=== PATIENT | male | born 1980 | race Two or more races ===

== ENCOUNTER 2020-02-24 12:37 | Outpatient (REF) | payer OTHER, SELFPAY ==
--- NOTE | 2020-02-24 | US_ITS ---
EXAMINATION: US VENOUS DUPLEX, RIGHT LOWER EXTREMITY CLINICAL INFORMATION: Right calf pain. Status post trauma on 02/22/2020 to the right knee and proximal calf area with bruising. COMPARISON: None TECHNIQUE: Walsh-scale, color Doppler and spectral Doppler evaluation of the right lower extremity venous system is acquired utilizing high-resolution linear transducer. FINDINGS: The common femoral vein, femoral vein and popliteal veins are patent and compressible. The deep calf veins demonstrate normal color flow. The visualized segments of the greater saphenous vein and profunda vein demonstrate normal color flow. A mildly complex avascular fluid collection is noted in the popliteal fossa measuring 3.6 x 2.2 x 4.4 cm. Smaller fluid collections are noted in the areas of bruising in the medial popliteal fossa and proximal medial calf in the deep subcutaneous tissue with somewhat complex appearance without internal vascularity. Somewhat more focal area of heterogeneous echogenicity approximately measuring 3.6 cm in maximum dimension is noted in the proximal medial calf without internal vascularity which may represent a soft tissue hematoma. IMPRESSION: 1. No evidence of deep venous thrombosis in the right lower extremity. 2. Multiple mildly complex avascular fluid collections are noted in the areas of bruising in the posterior and proximal medial calf deep subcutaneous tissue. More focal area of from heterogeneous echogenicity in the proximal medial calf may represent a hematoma in the deep subcutaneous tissue. The findings likely represent posttraumatic changes. Recommend close clinical follow-up. Follow-up imaging may be acquired as clinically deemed necessary.
== END 2020-02-24 12:38 | disposition home or self-care (01) ==
LOC: HO.US 12:37
PROVIDERS: PCP Internal Medicine; Visit Provider Internal Medicine
DX: M79.661 Pain in right lower leg (principal); R22.41 Localized swelling, mass and lump, right lower limb; S89.91XA Unspecified injury of right lower leg, initial encounter
CPT/HCPCS: 93971

== ENCOUNTER 2020-04-08 17:31 | Emergency (ER) | payer OTHER, SELFPAY ==
--- NOTE | 2020-04-08 18:07 | ED_ITS ---
HPI - General Adult General Chief complaint: Upper Respiratory Symptoms Stated complaint: covid symptoms Time Seen by Provider: 04/08/20 17:56 Source: patient Mode of arrival: ambulatory Limitations: no limitations History of Present Illness HPI narrative: Patient comes to emergency room complaining of a headache, body aches, states that his [id number] was recently diagnosed with COVID-19 and is in the hospital. Patient would like to be tested. MD complaint: Flu-like symptoms Related Data Allergies Allergy/AdvReac Type Severity Reaction Status Date / Time No Known Allergies Allergy Unverified 01/28/20 17:26 [No Known Allergies*] Review of Systems Review of Systems: Constitutional : Complaining fatigue and general malaise ENT/Mouth : No Hearing loss, No Ear Pain, No Nasal Congestion, No Sinus Pain, No Hoarseness, No sore throat, No Rhinorrhea, No Swallowing Difficulty Eyes: No Eye Pain, No Swelling, No Redness, No Foreign Body, No Discharge, No Vision Changes Cardiovascular : No Chest Pain, No SOB, No Dyspnea on Exertion, No Orthopnea, No Edema, No Palpitations Respiratory : Complaining of mild Cough, No Sputum, No Wheezing, No Smoke Exposure, No Dyspnea Gastrointestinal : No Nausea, No Vomiting, No Diarrhea, No Constipation, No abdominal Pain, No Hematochezia, No Melena Genitourinary : no irregular bleeding, No Dysuria, No Urinary Frequency, No Hematuria, No Urinary Incontinence, No Urgency, No Flank Pain, No Urinary Flow Changes, No Hesitancy Musculoskeletal : No joint pain, No Myalgias, No Joint Swelling Skin : No Skin Lesions, No rash Neuro : No Weakness, No Numbness, No Paresthesias, No Loss of Consciousness, No Dizziness, complaining of Headache Psych : No Anxiety/Panic, No Depression, No SI/HI/AH/VH, No Social Issues, Heme/Lymph: No Bruising, No Bleeding,No Lymphadenopathy Endocrine : No Polyuria, No Polydipsia, No Temperature Intolerance [facility] [place] Social History Social History Advance Directives: No Advance Directives Information Provided: Yes Physical Exam Vital Signs: Appearance: Alert. Oriented X3. No acute distress. Eyes: Pupils equal, round and reactive to light. ENT: Pharynx normal. Neck: Normal inspection. Neck supple. No lymph nodes noted. No crepitus CVS: Normal heart rate and rhythm. Pulses normal. Normal S1 and S2 Respiratory: No respiratory distress. Breath sounds normal. No Wheezing. No rales Abdomen: Soft and nontender. No rigidity. No distention. good BS x4 Skin: Skin warm and dry. Normal skin color. Normal skin turgor. Extremities: No lower extremity edema. No lower extremity edema. No Lacerations. No Rash Neuro: Oriented X 3. No motor deficit. No sensory deficit. Moving all extermities. No slurred speech. Course Course Course Narrative: Physical exam is normal, discussed with patient to remain self isolated, it is possible the patient may have COVID-19 Discharge Plan Discharge Clinical Impression: Viral syndrome Patient Disposition: Home, Self-Care Instructions: Viral Syndrome (ED) Additional Instructions: You were tested for COVID-19. Please remains of isolated until your results return Stand Alone Forms: Work/School Release
[2020-04-08 18:21] VITALS: PULSE 76; RESP 16; TEMP 37.2; O2SAT 98; BMI 35.5
[2020-04-08] MEDS: Ibuprofen 600 MG TABLET PO (18:30)
== END 2020-04-08 18:58 | disposition home or self-care (01) ==
PROVIDERS: Emergency Provider Emergency Medicine; PCP Internal Medicine
DX: B34.9 Viral infection, unspecified (principal); J06.9 Acute upper respiratory infection, unspecified; Z20.828 Contact with and (suspected) exposure to other viral communicable diseases
CPT/HCPCS: 99283; 99284; U0003

== ENCOUNTER 2020-06-01 11:05 | Outpatient (REF) | payer OTHER, SELFPAY ==
[2020-06-01 13:36] LABS: MANUAL DIFF FLAG NO
[2020-06-01 13:44] LABS: Basophils Percent Auto 0.6 % (0-2); Eosinophils Absolute Auto 0.3 X10*3/uL (0.0-0.4); Eosinophils Percent Auto 5.1 % (0-4); Hematocrit 39.4 % (42-52); Hemoglobin 13.2 g/dl (14.0-18.0); Imm Gran Abs Auto 0.02 X10*3/uL (0.00-0.03); Imm Gran Pct Auto 0.4 % (0.0-0.4); Lymphocytes Absolute Auto 1.9 X10*3/uL (1.2-4.9); Lymphocytes Percent Auto 39.4 % (20-40); Mean Corpuscular HGB Conc 33.5 g/dl (31.0-36.0); Mean Corpuscular Hemoglobin 29.5 pg (27.0-33.0); Mean Corpuscular Volume 88.1 fL (80-98); Mean Platelet Volume 10.1 fL (9.4-12.4); Monocytes Absolute Auto 0.5 X10*3/uL (0.1-1.2); Monocytes Percent Auto 9.6 % (2-11); Neutrophils Absolute Auto 2.2 X10*3/uL (2.0-8.3); Neutrophils Percent Auto 44.9 % (45-73); Platelet Count 252 X10*3/uL (160-400); Red Blood Count 4.47 X10*6/uL (4.60-5.80); Red Cell Distribution Width 11.7 % (11.0-16.0); White Blood Count 4.9 X10*3/uL (4.8-10.8)
[2020-06-01 13:55] LABS: Estimated Average Glucose 131 mg/dL; Hemoglobin A1c % 6.2 %
[2020-06-01 14:14] LABS: Alanine Aminotransferase 40 U/L (0-40); Albumin Level 4.3 g/dL (3.5-5.0); Alkaline Phosphatase 71 U/L (39-117); Anion Gap 13 (12-20); Aspartate Amino Transferase 36 U/L (5-37); Bilirubin Total 0.4 mg/dL (0.0-1.0); Blood Urea Nitrogen 15 mg/dL (9-16); Calcium 8.7 mg/dL (8.4-10.2); Carbon Dioxide 28 mmol/L (22-29); Chloride 104 mmol/L (96-108); Cholesterol 92 mg/dL; Estimated Glomerular Filt Rate > 60; Glucose Random 110 mg/dL (60-115); Potassium 4.5 mmol/l (3.3-5.1); Sodium 140 mmol/L (135-145); Total Protein 7.5 g/dL (6.5-8.0)
== END 2020-06-01 11:06 | disposition home or self-care (01) ==
LOC: HO.10HDL 11:05
PROVIDERS: Visit Provider Internal Medicine
DX: I10 Essential (primary) hypertension (principal); R73.03 Prediabetes; K57.90 Diverticulosis of intestine, part unspecified, without perforation or abscess without bleeding
CPT/HCPCS: 36415; 80053; 82465; 83036; 85025

== ENCOUNTER → 2020-06-16 10:43 | Outpatient (BNVA) | payer OTHER, SELFPAY | PROVIDERS: PCP Internal Medicine; Visit Provider Internal Medicine | DX: G47.33 Obstructive sleep apnea (adult) (pediatric) (principal); E66.9 Obesity, unspecified; Z68.38 Body mass index [BMI] 38.0-38.9, adult | CPT/HCPCS: 99202 ==

== ENCOUNTER → 2020-07-21 10:57 | Outpatient (REF) | payer OTHER, SELFPAY | LOC: HO.SL 10:57 | PROVIDERS: PCP Internal Medicine; Visit Provider Internal Medicine | DX: G47.33 Obstructive sleep apnea (adult) (pediatric) (principal); E66.9 Obesity, unspecified | CPT/HCPCS: 95806 ==

== ENCOUNTER → 2020-08-03 11:27 | Outpatient (BNVA) | payer OTHER, SELFPAY | PROVIDERS: PCP Internal Medicine; Visit Provider Internal Medicine | DX: R06.83 Snoring (principal); E66.9 Obesity, unspecified; Z68.38 Body mass index [BMI] 38.0-38.9, adult; Z71.3 Dietary counseling and surveillance; Z79.899 Other long term (current) drug therapy | CPT/HCPCS: 99212 ==

== ENCOUNTER 2020-12-27 19:24 | Emergency (ER) | payer OTHER, SELFPAY ==
[2020-12-27 21:15] VITALS: BP 146/77; PULSE 61; RESP 18; TEMP 37.1; O2SAT 99; BMI 38.4
--- NOTE | 2020-12-27 22:25 | ED.LOWEXIN ---
HPI - Extremity Injury (Lower) General Chief Complaint: Extremity Injury, Lower Stated Complaint: LEG PAIN Time Seen by Provider: 12/27/20 21:49 Source: patient Mode of arrival: ambulatory Limitations: no limitations History of Present Illness HPI Narrative: 40 y/o male presenting to the ER with acute on chronic right knee pain. He reports the pain started again about 2-3 days ago after working on his feet for 9+ hours at work. He reports an injury to the right knee 2 months ago. He had a normal x-ray at that time. His pain slowly resolved over time. He denies any recurrent injury, just overuse. He wears supportive shoes at work but his job is very labor intensive. He denies redness, warmth, limited ROM or fever. complaint: knee injury Onset (ago): day(s) Type of Injury: unknown Place: home and work Severity: moderate Severity scale (1-10): 6 Relieving factors: nothing Exacerbating factors: weight bearing and palpation Associated symptoms: swelling and ambulatory Other symptoms: none Related Data Home Medications Medication Instructions Recorded Confirmed amlodipine 10 mg tablet 10 mg PO DAILY 06/16/20 atorvastatin 20 mg tablet 20 mg PO BEDTIME 06/16/20 hydralazine 25 mg tablet 25 mg PO BID 06/16/20 lisinopril 20 mg tablet 20 mg PO DAILY tab 06/16/20 Previous Rx's Medication Instructions Recorded ibuprofen 600 mg tablet 600 mg PO Q8H PRN #20 tab 12/27/20 Allergies Allergy/AdvReac Type Severity Reaction Status Date / Time No Known Allergies Allergy Verified 12/27/20 21:15 [No Known Allergies*] Review of Systems Review of Systems: Constitutional: No Fever, No Chills Cardiovascular: No Chest Pain, No SOB Gastrointestinal: No Nausea, No Vomiting Musculoskeletal: + joint pain, No Myalgias Skin: No Skin Lesions, No rash Neuro: No Weakness, No Numbness Heme/Lymph: No Bruising PMFSH Past Medical History Attestation statement: The following information was validated with the patient. Medical History HTN (hypertension) Obesity (BMI 35.0-39.9 without comorbidity) FAUSTINO (obstructive sleep apnea) Panic attacks Snoring Social History Social History Substance Use Type: Marijuana Advance Directives: No Physical Exam Vital Signs: Vital Signs: Last Vital Signs Temp 98.7 F 12/27/20 21:15 Pulse 61 12/27/20 21:15 Resp 18 12/27/20 21:15 BP 146/77 H 12/27/20 21:15 Pulse Ox 99 12/27/20 21:15 Body Mass Index 38.4 Appearance: Alert. Oriented X3. No acute distress. HEENT: normal inspection CVS: Normal heart rate and rhythm. Pulses normal. Respiratory: No respiratory distress. Skin: Skin warm and dry. Normal skin color. Normal skin turgor. No rashes. Extremities: right knee with very mild suprapatellar swelling, joint is not warm or red. full ROM. knee is tender along medial joint line, patellar tendon. No joint laxiety Neuro: Oriented X 3. No motor deficit. No sensory deficit. Normal gait. Course Course Course Narrative: 40 y/o male presenting with acute on chronic right knee pain. No known recent injury. He is on his feet 9+ hours per day at work. Pain is worse at the end of the day. Mild swelling noted but no warmth or redness. No evidence of septic joint. We discussed utility of XR vs supportive care. We decided to hold off on XR for now and apply andra wrap for compression, start RICE therapy and follow up with Orthopedics for further management. Recommended rest for next 48 hours and trial of NSAID. Stable for d/c home. Critical Care Time Critical Care Time Critical Care Time: No Discharge Plan Discharge Clinical Impression: Acute pain of right knee Patient Disposition: Home, Self-Care Instructions: Swollen Knee Joint (ED), Knee Pain (ED) Additional Instructions: Wear the ANDRA wrap for compression and support. Rest and ice your knee several times per day. Stay off it as much as you can for the next 2 days. Elevate your knee when possible. Take the prescribed anti-inflammatory medication as directed. Recommend following up with Orthopedics in 1 week. If you develop new or worsening symptoms call 911 or come back to the ER for further evaluation. Prescriptions: New ibuprofen 600 mg tablet 600 mg PO Q8H PRN (Reason: pain) Qty: 20 RF: 0 No Action atorvastatin 20 mg tablet 20 mg PO BEDTIME RF: 0 amlodipine 10 mg tablet 10 mg PO DAILY RF: 0 lisinopril 20 mg tablet 20 mg PO DAILY RF: 0 hydralazine 25 mg tablet 25 mg PO BID RF: 0 Referrals: Jason Ovalles MD [Physician] - 1 week (right knee pain) Stand Alone Forms: Work/School Release
== END 2020-12-27 22:37 | disposition home or self-care (01) ==
PROVIDERS: Emergency Provider Emergency Medicine; PCP Internal Medicine
DX: M25.561 Pain in right knee (principal); I10 Essential (primary) hypertension
CPT/HCPCS: 99282; 99283

== ENCOUNTER 2021-06-22 16:46 | Emergency (ER) | payer OTHER, SELFPAY ==
--- NOTE | ~2021-06-22 | CT_ITS ---
EXAMINATION: CT ABDOMEN AND PELVIS WITHOUT CONTRAST CLINICAL INFORMATION: Abdominal pain. History of diverticulitis. COMPARISON: CT abdomen/pelvis dated from 09/21/2018. TECHNIQUE: Multidetector volumetric imaging was performed from the superior aspect of the liver through the pubic symphysis. Sagittal and coronal reformatted images were obtained on the technologist's workstation. This CT examination was performed using dose optimization techniques as appropriate, variously including the following: *Automated exposure control *Adjustment of mA and/or kV according to patient size (this includes techniques or standardized protocols for targeted exams where dose is matched to indication/reason for exam; i.e. extremities or head) *Use of iterative reconstruction technique DLP: 790 mGy-cm FINDINGS: LUNG BASES: No focal consolidation or pleural effusion. LIVER, GALLBLADDER, AND BILIARY TREE: Decreased parenchymal attenuation most consistent with hepatic steatosis. Otherwise, the liver is normal in size and shape without focal abnormalities. Normal appearance of the gallbladder. No biliary ductal dilatation. PANCREAS: Unremarkable. SPLEEN: Unremarkable. ADRENAL GLANDS: Unremarkable. KIDNEYS AND URETERS: The kidneys are normal in size, shape, and attenuation. There is a 1.8 cm water density cyst exophytically from the lower pole of the left kidney. No hydronephrosis, hydroureter, or calculi seen. No perinephric stranding. BLADDER: Underdistended and suboptimally assessed. GASTROINTESTINAL TRACT: The stomach and the small bowel are nondilated. Normal appendix. Redemonstration of surgical anastomosis in the rectosigmoid junction. Colonic diverticulosis. No pericolic inflammatory changes or evidence of bowel obstruction. ABDOMINAL WALL: Midline surgical abdominal scarring. LYMPH NODES: No lymphadenopathy by size criteria. VASCULAR: Atherosclerotic disease. The abdominal aorta is of normal diameter. PELVIC VISCERA: Unremarkable. OSSEOUS STRUCTURES: No acute or aggressive osseous abnormalities. CT/CT abdomen pelvis wo con IMPRESSION: Diverticulosis but no evidence of acute diverticulitis. Hepatic steatosis.
[2021-06-22 16:52] VITALS: BP 150/86; PULSE 80; RESP 16; TEMP 36.9; O2SAT 98; BMI 36.6
[2021-06-22 17:11] LABS: MANUAL DIFF FLAG NO
[2021-06-22 17:13] LABS: Basophils Percent Auto 0.4 % (0-2); Eosinophils Absolute Auto 0.2 X10*3/uL (0.0-0.4); Eosinophils Percent Auto 3.7 % (0-4); Hematocrit 39.1 % (42.0-52.0); Hemoglobin 13.4 g/dl (14.0-18.0); Imm Gran Abs Auto 0.02 X10*3/uL (0.00-0.03); Imm Gran Pct Auto 0.4 % (0.0-0.4); Lymphocytes Absolute Auto 1.8 X10*3/uL (1.2-4.9); Lymphocytes Percent Auto 32.4 % (20-40); Mean Corpuscular HGB Conc 34.3 g/dl (31.0-36.0); Mean Corpuscular Hemoglobin 29.6 pg (27.0-33.0); Mean Corpuscular Volume 86.5 fL (80.0-98.0); Mean Platelet Volume 9.2 fL (9.4-12.4); Monocytes Absolute Auto 0.4 X10*3/uL (0.1-1.2); Monocytes Percent Auto 7.6 % (2-11); Neutrophils Percent Auto 55.5 % (45-73); Platelet Count 274 X10*3/uL (160-400); Red Blood Count 4.52 X10*6/uL (4.60-5.80); White Blood Count 5.4 X10*3/uL (4.8-10.8)
[2021-06-22 17:33] LABS: COVID-19 Test Negative (Negative)
[2021-06-22 17:37] LABS: Alanine Aminotransferase 50 U/L (0-40); Albumin Level 4.3 g/dL (3.5-5.0); Alkaline Phosphatase 82 U/L (39-117); Anion Gap 11 (12-20); Aspartate Amino Transferase 39 U/L (5-37); Bilirubin Total 0.6 mg/dL (0.0-1.0); Blood Urea Nitrogen 13 mg/dL (9-16); Calcium 9.3 mg/dL (8.4-10.2); Carbon Dioxide 30 mmol/L (22-29); Chloride 102 mmol/L (96-108); Creatinine Clr Calc Pharmacy 97.7; Estimated Glomerular Filt Rate > 60; Glucose Random 184 mg/dL (60-115); Potassium 4.1 mmol/L (3.3-5.1); Sodium 139 mmol/L (135-145); Total Protein 7.8 g/dL (6.5-8.0)
--- NOTE | 2021-06-22 21:59 | ECG_ITS ---
Test Reason : GENERAL MEDICINE Blood Pressure : / mmHG Vent. Rate : 067 BPM Atrial Rate : 067 BPM P-R Int : 184 ms QRS Dur : 094 ms QT Int : 406 ms P-R-T Axes : 051 005 007 degrees QTc Int : 429 ms Normal sinus rhythm with sinus arrhythmia Normal ECG When compared with ECG of 31-DEC-2019 23:24, No significant change was found Referred By: Mayte Holley Electronically Signed By:Faheem Marte
--- NOTE | 2021-06-22 22:00 | ED.ABDPAIN ---
HPI - Abdominal Pain General Chief Complaint: Abdominal Pain Stated Complaint: fever,stomach ache,vomiting Time Seen by Provider: 06/22/21 21:57 Source: patient and family ( significant other) Mode of arrival: ambulatory Limitations: no limitations History of Present Illness HPI narrative: 41-year-old male came in for evaluation of abdominal pain. Upper/ mid abdominal pain started for 3 days, pain is intermittent described as dull aching moderate 7/10, associated with nausea and vomiting, patient being getting subjective fever with abdominal pain, and nonbloody watery diarrhea. No relieving factor, no aggravating factor. Patient declined exposure to sick contacts, patient did not receive COVID vaccination. History of diverticular disease, partial colectomy with colostomy. Related Data Home Medications Medication Instructions Recorded Confirmed amlodipine 10 mg tablet 10 mg PO DAILY 06/16/20 atorvastatin 20 mg tablet 20 mg PO BEDTIME 06/16/20 hydralazine 25 mg tablet 25 mg PO BID 06/16/20 lisinopril 20 mg tablet 20 mg PO DAILY tab 06/16/20 Previous Rx's Medication Instructions Recorded ibuprofen 600 mg tablet 600 mg PO Q8H PRN #20 tab 12/27/20 Allergies Allergy/AdvReac Type Severity Reaction Status Date / Time No Known Allergies Allergy Verified 12/27/20 21:15 [No Known Allergies*] Review of Systems Review of Systems All other systems are reviewed and are negative Constitutional: Reports as per HPI and Reports no additional constitutional complaints Eyes: Reports as per HPI and Reports no additional eye complaints Reports system reviewed and no additional complaints, except as documented Cardiovascular: Reports as per HPI and Reports no additional cardiovascular complaints Respiratory: Reports as per HPI and Reports no additional respiratory complaints Gastrointestinal: Reports as per HPI and Reports no additional gastrointestinal complaints Genitourinary: Reports no additional female genitourinary complaints Musculoskeletal: Reports no additional musculoskeletal complaints Skin/Breast: Reports system reviewed and no additional complaints, except as docu Psychiatric: Reports no additional psychiatric complaints Endocrine: Reports no additional endocrine complaints Hematologic/Lymphatic: Reports no additional hematologic/lymphatic complaints Allergic/Immunologic: Reports no additional allergic/immunologic complaints Reports system reviewed and no additional complaints, except as documented and Reports Abnormal speech present Physical Exam Vital Signs: Vital Signs: Last Vital Signs Temp 98.2 F 06/22/21 22:22 Pulse 63 06/22/21 22:22 Resp 16 06/22/21 22:22 BP 159/100 H 06/22/21 22:22 Pulse Ox 96 06/22/21 22:22 BMI result Body Mass Index 36.6 vital signs have been reviewed as appeared to be correct. Blood pressure Elevated. Heart rate normal. Respiration rate normal. Temperature normal. Oxygen saturation normal. Appearance: Alert. Oriented X3. No acute distress. Head: Normal external exam. Normocephalic. Atraumatic. No Thomson signs noted. No raccoon eyes noted Eyes: PERRLA. EOMI. Conjunctiva and sclera normal. Eyelids normal. ENT: TM's Normal. Pharynx normal. Uvula midline. Moist mucous membranes. No trismus noted. No drooling noted. No muffled voice noted. Neck: Normal inspection. Neck supple. FROM. No adenopathy. Thyroid Normal. No meningeal signs. No neck mass noted. CVS: Normal heart rate and rhythm. Heart sound normal. No murmurs noted. Pulses normal throughout. Respiratory: No respiratory distress. Painless inspiration. Breath sounds normal. No wheezes/rales/rhonchi noted. Chest nontender. No accessory muscle usage noted or decreased air movement noted. Abdomen: Soft and nontender. Bowel sounds normal in all 4 quadrants. No distention noted. No organomegaly noted. No visible injury noted. Back: No CVA tenderness. Full range of motion noted. Skin: Skin warm and dry. Normal skin color. Normal skin turgor. No rashes/lesions/lacerations noted. Extremities: No lower extremity edema. Extremities exhibit normal range of motion. Extremities nontender. Neuro: Oriented X 3. Cranial nerve exam: II-XII are grossly intact No motor deficit. No sensory deficit. Reflexes normal. Course Course Course Narrative: 41-year-old male came in with abdominal pain in and fever. 1. Patient is negative for COVID. 2. Slight elevation of LFTs CT of the abdomen and pelvis show hepatic steatosis, patient will be referred to his PCP to follow up with that. 3. Abdominal pain with normal WBCs CT showed stable postsurgical changes , with no acute intra-abdominal pathology. MDM - Abdominal Pain Medical Records Attestation: I reviewed the patient's medical records. Lab Data Attestation: I reviewed the patient's lab results. Result diagrams: 06/22/21 16:57 06/22/21 16:57 Labs: Lab Results 06/22/21 06/22/21 06/22/21 Range/Units 16:54 16:57 16:57 WBC 5.4 (4.8-10.8) X10*3/uL RBC 4.52 L (4.60-5.80) X10*6/uL Hgb 13.4 L (14.0-18.0) g/dl Hct 39.1 L (42.0-52.0) % MCV 86.5 (80.0-98.0) fL MCH 29.6 (27.0-33.0) pg MCHC 34.3 (31.0-36.0) g/dl RDW 12.0 (11.0-16.0) % Plt Count 274 (160-400) X10*3/uL MPV 9.2 L (9.4-12.4) fL Immature Gran % (Auto) 0.4 (0.0-0.4) % Neut % (Auto) 55.5 (45-73) % Lymph % (Auto) 32.4 (20-40) % [place] % (Auto) 7.6 (2-11) % Eos % (Auto) 3.7 (0-4) % Baso % (Auto) 0.4 (0-2) % Lymph # (Auto) 1.8 (1.2-4.9) X10*3/uL [place] # (Auto) 0.4 (0.1-1.2) X10*3/uL Eos # (Auto) 0.2 (0.0-0.4) X10*3/uL Baso # (Auto) 0.0 (0.0-0.2) X10*3/uL Abs Immat Gran (auto) 0.02 (0.00-0.03) X10*3/uL Absolute Neuts (auto) 3.0 (2.0-8.3) x10*3/uL Absolute Nucleated RBC 0.000 (0.0-0.012) X10*3/uL Nucleated RBC % (auto) 0.0 (0.0-0.2) /100WBC Sodium 139 (135-145) mmol/L Potassium 4.1 (3.3-5.1) mmol/L Chloride 102 (96-108) mmol/L Carbon Dioxide 30 H (22-29) mmol/L Anion Gap 11 L (12-20) BUN 13 (9-16) mg/dL Creatinine 1.08 (0.5-1.4) mg/dL Estim Creat Clear Calc 97.7 Estimated GFR > 60 Random Glucose 184 H D (60-115) mg/dL Calcium 9.3 D (8.4-10.2) mg/dL Total Bilirubin 0.6 (0.0-1.0) mg/dL AST 39 H (5-37) U/L ALT 50 H (0-40) U/L Alkaline Phosphatase 82 (39-117) U/L Troponin I High Sens (<3.5-35.0) ng/L Total Protein 7.8 (6.5-8.0) g/dL Albumin 4.3 (3.5-5.0) g/dL Lipase 49 (8-78) U/L Urine Color Urine Appearance Urine pH (5.0-8.0) Ur Specific [place] (1.005-1.025) Urine Protein (NEG-TRACE) MG/DL Urine Glucose (UA) (NEG) MG/DL Urine Ketones (NEG) MG/DL Urine Blood (NEG) Urine Nitrite (NEG) Ur Leukocyte Esterase (NEG) Urine RBC (0) /HPF Urine WBC (0-4) /HPF Ur Squamous Epith Cells /LPF Calcium Oxalate Crystal /LPF Urine Bacteria /LPF Granular Casts /LPF Urine Mucus /LPF COVID-19 (JULIO) Negative (Negative) COVID-19 Clin Com See Note 06/22/21 06/22/21 Range/Units 22:29 22:35 WBC (4.8-10.8) X10*3/uL RBC (4.60-5.80) X10*6/uL Hgb (14.0-18.0) g/dl Hct (42.0-52.0) % MCV (80.0-98.0) fL MCH (27.0-33.0) pg MCHC (31.0-36.0) g/dl RDW (11.0-16.0) % Plt Count (160-400) X10*3/uL MPV (9.4-12.4) fL Immature Gran % (Auto) (0.0-0.4) % Neut % (Auto) (45-73) % Lymph % (Auto) (20-40) % [place] % (Auto) (2-11) % Eos % (Auto) (0-4) % Baso % (Auto) (0-2) % Lymph # (Auto) (1.2-4.9) X10*3/uL [place] # (Auto) (0.1-1.2) X10*3/uL Eos # (Auto) (0.0-0.4) X10*3/uL Baso # (Auto) (0.0-0.2) X10*3/uL Abs Immat Gran (auto) (0.00-0.03) X10*3/uL Absolute Neuts (auto) (2.0-8.3) x10*3/uL Absolute Nucleated RBC (0.0-0.012) X10*3/uL Nucleated RBC % (auto) (0.0-0.2) /100WBC Sodium (135-145) mmol/L Potassium (3.3-5.1) mmol/L Chloride (96-108) mmol/L Carbon Dioxide (22-29) mmol/L Anion Gap (12-20) BUN (9-16) mg/dL Creatinine (0.5-1.4) mg/dL Estim Creat Clear Calc Estimated GFR Random Glucose (60-115) mg/dL Calcium (8.4-10.2) mg/dL Total Bilirubin (0.0-1.0) mg/dL AST (5-37) U/L ALT (0-40) U/L Alkaline Phosphatase (39-117) U/L Troponin I High Sens 7.3 (<3.5-35.0) ng/L Total Protein (6.5-8.0) g/dL Albumin (3.5-5.0) g/dL Lipase (8-78) U/L Urine Color YELLOW Urine Appearance CLEAR Urine pH 5.5 (5.0-8.0) Ur Specific [place] >= 1.030 H (1.005-1.025) Urine Protein 2+ H (NEG-TRACE) MG/DL Urine Glucose (UA) NEG (NEG) MG/DL Urine Ketones NEG (NEG) MG/DL Urine Blood NEG (NEG) Urine Nitrite NEG (NEG) Ur Leukocyte Esterase NEG (NEG) Urine RBC 0-2 (0) /HPF Urine WBC 0-2 (0-4) /HPF Ur Squamous Epith Cells TRACE /LPF Calcium Oxalate Crystal 2+ /LPF Urine Bacteria NONE /LPF Granular Casts 1-4 /LPF Urine Mucus TRACE /LPF COVID-19 (JULIO) (Negative) COVID-19 Clin Com Imaging Data CT scan - abdomen: Attestation: I personally reviewed and interpreted this imaging study as follows: Radiologist's impression: Diverticulosis but no evidence of acute diverticulitis. Discharge Plan Discharge Clinical Impression: Abdominal pain, Elevated LFTs Patient Disposition: Home, Self-Care Instructions: Abdominal Pain (ED) Prescriptions: No Action ibuprofen 600 mg tablet 600 mg PO Q8H PRN (Reason: pain) Qty: 20 0RF atorvastatin 20 mg tablet 20 mg PO BEDTIME 0RF amlodipine 10 mg tablet 10 mg PO DAILY 0RF lisinopril 20 mg tablet 20 mg PO DAILY 0RF hydralazine 25 mg tablet 25 mg PO BID 0RF Referrals: Physician,Unknown J [Primary Care Provider] - 2 days Stand Alone Forms: Work/School Release [facility] Past Medical History Medical History HTN (hypertension) Obesity (BMI 35.0-39.9 without comorbidity) FAUSTINO (obstructive sleep apnea) Panic attacks Snoring Social History Social History Substance Use Type: Marijuana Advance Directives: No
[2021-06-22 22:18] LABS: Lipase 49 U/L (8-78)
[2021-06-22 22:22] VITALS: BP 159/100; PULSE 63; RESP 16; TEMP 36.8; O2SAT 96
[2021-06-22 22:52] LABS: Appearance Urine CLEAR; Color Urine YELLOW; Glucose Urine UA NEG (NEG); Leukocyte Esterase Urine NEG (NEG); Nitrite Urine NEG (NEG); PH 5.5 (5.0-8.0); Specific Gravity - Urine >= 1.030 (1.005-1.025); UACC Culture Trigger NO; Urine Blood NEG (NEG); Urine Ketones NEG (NEG); Urine Protein 2+ MG/DL (NEG-TRACE)
[2021-06-22 23:00] LABS: Troponin-I High Sensitivity 7.3 ng/L (<3.5-35.0)
[2021-06-22 23:05] LABS: Calcium Oxalate Crystals Urine 2+ /LPF; Mucus Urine TRACE /LPF; RBC Urine 0-2 /HPF (0); Squamous Epithelial Cell Urine TRACE /LPF; WBC Urine 0-2 /HPF (0-4)
== END 2021-06-23 00:14 | disposition home or self-care (01) ==
PROVIDERS: Emergency Provider Emergency Medicine
DX: R10.9 Unspecified abdominal pain (principal); R50.9 Fever, unspecified; F12.90 Cannabis use, unspecified, uncomplicated; R79.89 Other specified abnormal findings of blood chemistry; Z20.822 Contact with and (suspected) exposure to COVID-19; Z79.899 Other long term (current) drug therapy
CPT/HCPCS: 74176; 80053; 81001; 83690; 84484; 85025; 87635; 93005; 99284

== ENCOUNTER 2021-07-06 01:22 | Emergency (ER) | payer OTHER, SELFPAY | END 2021-07-06 02:10 | disposition home or self-care (01) | PROVIDERS: Emergency Provider Emergency Medicine | DX: S51.012A Laceration without foreign body of left elbow, initial encounter (principal); W27.8XXA Contact with other nonpowered hand tool, initial encounter; I10 Essential (primary) hypertension; Y93.E1 Activity, personal bathing and showering; Y92.031 Bathroom in apartment as the place of occurrence of the external cause; Y99.8 Other external cause status; F17.200 Nicotine dependence, unspecified, uncomplicated | CPT/HCPCS: 99282 ==

== ENCOUNTER 2021-11-08 10:08 | Emergency (ER) | payer OTHER, SELFPAY ==
[2021-11-08 10:31] VITALS: BP 148/93; PULSE 82; RESP 16; TEMP 36; O2SAT 99; BMI 35.5
[2021-11-08] MEDS: Tetracaine HCl/PF 0.5% Oph Sol 4 ML DROPS 3 DROP EYE-RIGHT (10:39)
[2021-11-08] MEDS: Fluorescein Sodium STRIP 1 STRIP EYE-RIGHT (10:39)
--- NOTE | 2021-11-08 11:00 | ED_ITS ---
HPI - Eye Problem General Chief complaint: Eye Problems Stated complaint: EYE INJ Time Seen by Provider: 11/08/21 10:32 Source: patient Mode of arrival: ambulatory Limitations: no limitations History of Present Illness HPI Narrative: Patient presents emergency department for evaluation of right eye pain. He reports yesterday while buffing a car a piece of metal bristle got into his right eye. He states that he was able to remove it, however since last night he has had pain to the eye, redness, sensitivity to light. His vision is blurry. Denies any itchiness. Does feel a foreign body sensation. Denies any purulent drainage, fevers, chills. States that he last had his tetanus vaccine updated 3 months ago. Related Data Home Medications Medication Instructions Recorded Confirmed amlodipine 10 mg tablet 10 mg PO DAILY 06/16/20 atorvastatin 20 mg tablet 20 mg PO BEDTIME 06/16/20 hydralazine 25 mg tablet 25 mg PO BID 06/16/20 lisinopril 20 mg tablet 20 mg PO DAILY 06/16/20 Previous Rx's Medication Instructions Recorded ibuprofen 600 mg tablet 600 mg PO Q8H PRN pain #20 tabs 12/27/20 naproxen 500 mg tablet 500 mg PO BID PRN pain 7 days #14 11/08/21 tabs ofloxacin 0.3 % eye drops 2 drp ophthalmic (eye) QID #5 mL 11/08/21 Allergies Allergy/AdvReac Type Severity Reaction Status Date / Time No Known Allergies Allergy Verified 12/27/20 21:15 [No Known Allergies*] Review of Systems Review of Systems: Eye: Positive pain, positive redness, positive blurred vision, positive trauma Yes all other systems are reviewed and are negative ON LICENSE OF [facility] Past Medical History Attestation statement: The following information was validated with the patient. Source: old records reviewed Medical History HTN (hypertension) Panic attacks Social History Social History Substance Use Type: Marijuana Advance Directives: No Advance Directives Information Provided: Yes Physical Exam Vital Signs: Vital Signs: Last Vital Signs Temp 96.8 F 11/08/21 10:31 Pulse 82 11/08/21 10:31 Resp 16 11/08/21 10:31 BP 148/93 H 11/08/21 10:31 Pulse Ox 99 11/08/21 10:31 O2 Del Method 11/08/21 10:31 BMI result Body Mass Index 35.5 Appearance: Alert.?Oriented to person, place and time. No acute distress.?Normal affect. Eyes: Pupils equal, round and reactive to light, 3mm bilaterally, EOMI, right sclera injected, no foreign body noted, positive fluorescein uptake at 5-6 o'clock, visual acuity in the left unaffected eye 20/50, right affected eye 20/70. No periorbital swelling ENT: Pharynx normal.?? Neck: Normal inspection.? Neck supple.?? CVS: Heart sounds normal. Normal heart rate and rhythm.? Pulses normal.?? Respiratory: No respiratory distress.? Lung sounds clear to auscultation bilaterally?? Abdomen: Soft and non-tender. Normoactive bowel sounds. No pulsatile mass.?? Skin: Skin warm and dry.? Normal skin color.? Normal skin turgor.?? Extremities: No lower extremity edema.? No calf ttp? Neuro: Moves all extremities spontaneously. Sensation intact bilaterally. CN II- XII intact. No focal neuro deficits. Ambulates with normal steady gait. Course Course Course Narrative: Patient is a 41-year-old male being evaluated for right eye pain and redness after trauma yesterday. Tetanus vaccine is up-to-date. Exam not consistent with periorbital or orbital cellulitis. Fluorescein uptake noted, consistent with corneal abrasion. Discussed plan of care for antibiotic drops, outpatient follow-up with Ophthalmology, discussed worrisome signs and symptoms as reasons to return back to the emergency department, all questions were answered, patient was discharged home in stable condition. Discharge Plan Discharge Clinical Impression: Corneal abrasion Patient Disposition: Home, Self-Care Instructions: Corneal Abrasion (ED) Additional Instructions: You have been given a prescription for antibiotic eyedrops, please complete this entire course as advised. Naproxen by mouth for pain, twice Daily, do not take additional [id number] ibuprofen/Motrin, Aleve, aspirin while taking this medication. You have been given contact information for an branch operations specialist, this is the eye doctor, you need to follow-up with them regarding your corneal abrasion. You may return to the emergency department any new or worsening symptoms or concerns Prescriptions: New ofloxacin 0.3 % drops 2 drp ophthalmic (eye) QID Qty: 5 0RF naproxen 500 mg tablet 500 mg PO BID PRN (Reason: pain) 7 Days Qty: 14 0RF No Action ibuprofen 600 mg tablet 600 mg PO Q8H PRN (Reason: pain) Qty: 20 0RF atorvastatin 20 mg tablet 20 mg PO BEDTIME amlodipine 10 mg tablet 10 mg PO DAILY lisinopril 20 mg tablet 20 mg PO DAILY hydralazine 25 mg tablet 25 mg PO BID Referrals: Garrett Jiang [Physician] - 2 days
== END 2021-11-08 11:35 | disposition home or self-care (01) ==
PROVIDERS: Emergency Provider Emergency Medicine
DX: S05.01XA Injury of conjunctiva and corneal abrasion without foreign body, right eye, initial encounter (principal); W20.8XXA Other cause of strike by thrown, projected or falling object, initial encounter; H57.11 Ocular pain, right eye; Y93.89 Activity, other specified; Y92.810 Car as the place of occurrence of the external cause; Y99.8 Other external cause status
CPT/HCPCS: 99282; 99283

== ENCOUNTER 2021-12-03 22:06 | Inpatient (IN) | payer MEDICAID, OTHER, SELFPAY ==
--- NOTE | ~2021-12-03 | CT_ITS ---
EXAMINATION: CT HEAD WITHOUT CONTRAST CLINICAL INFORMATION: Headache for one month, rule out mass effect COMPARISON: 06/06/2019 TECHNIQUE: Contiguous axial imaging was performed from the skull base to vertex without intravenous administration of contrast. This CT examination was performed using dose optimization techniques as appropriate, variously including the following: *Automated exposure control *Adjustment of mA and/or kV according to patient size (this includes techniques or standardized protocols for targeted exams where dose is matched to indication/reason for exam; i.e. extremities or head) *Use of iterative reconstruction technique DLP: 774 mGy-cm FINDINGS: There is no evidence of acute intracranial hemorrhage or territorial infarction. No abnormal mass effect or midline shift is seen. Walsh to white matter differentiation is well preserved. No extra-axial fluid collections are identified. The ventricles are normal in size. There is no abnormal attenuation within the brain parenchyma. The osseous structures and soft tissues are normal. The mastoid air cells and visualized portions of the paranasal sinuses are well aerated. CT/CT head/brain wo con IMPRESSION: No acute intracranial pathology.
--- NOTE | ~2021-12-03 | XR_ITS ---
EXAMINATION: XR CHEST CLINICAL INFORMATION: Dizziness COMPARISON: None TECHNIQUE: Frontal view of the chest was obtained. FINDINGS: The lungs are hypoinflated. No focal consolidation is seen. No evidence of pneumothorax, pleural effusion, or pulmonary edema. The cardiomediastinal contour is unremarkable. No acute osseous findings are seen. XR/XR chest 1V IMPRESSION: No acute cardiopulmonary findings.
[2021-12-03 22:36] VITALS: BP 136/99; PULSE 83; RESP 16; TEMP 36.8; O2SAT 98; BMI 30.7
--- NOTE | 2021-12-03 22:48 | ECG_ITS ---
Test Reason : DIZZINESS Blood Pressure : / mmHG Vent. Rate : 065 BPM Atrial Rate : 065 BPM P-R Int : 178 ms QRS Dur : 092 ms QT Int : 388 ms P-R-T Axes : 052 011 015 degrees QTc Int : 403 ms Normal sinus rhythm Early repolarization otherwise Normal ECG When compared with ECG of 22-JUN-2021 22:14, T wave amplitude has increased in Lateral leads Referred By: Generic ED Physician Electronically Signed By:ABBE VERNON
[2021-12-04] VITALS (7 sets, daily range): BP systolic 127–158; BP diastolic 72–114; PULSE 67–88; RESP 14–18; TEMP 36–37.1; O2SAT 97–99
[2021-12-04 00:29] LABS: Glucose, Whole Blood > 600 mg/dL (60-115)
[2021-12-04] MEDS: diphenhydrAMINE HCL 50 MG/ML VIAL IVPUSH (00:36)
[2021-12-04] MEDS: Ketorolac Tromethamine 15 MG/ML VIAL IVPUSH (00:36)
[2021-12-04] MEDS: Metoclopramide HCl 10 MG/2 ML VIAL IVPUSH (00:36)
[2021-12-04 00:40] LABS: Venous Blood Gas Refer to POC result
[2021-12-04 00:40] LABS: MANUAL DIFF FLAG NO
[2021-12-04 00:41] LABS: Basophils Percent Auto 0.5 % (0-2); Eosinophils Absolute Auto 0.1 X10*3/uL (0.0-0.4); Eosinophils Percent Auto 2.6 % (0-4); Hematocrit 41.8 % (42.0-52.0); Hemoglobin 14.7 g/dl (14.0-18.0); Imm Gran Abs Auto 0.02 X10*3/uL (0.00-0.03); Imm Gran Pct Auto 0.5 % (0.0-0.4); Lymphocytes Absolute Auto 1.5 X10*3/uL (1.2-4.9); Lymphocytes Percent Auto 34.3 % (20-40); Mean Corpuscular HGB Conc 35.2 g/dl (31.0-36.0); Mean Corpuscular Hemoglobin 29.2 pg (27.0-33.0); Mean Corpuscular Volume 82.9 fL (80.0-98.0); Mean Platelet Volume 10.8 fL (9.4-12.4); Monocytes Absolute Auto 0.4 X10*3/uL (0.1-1.2); Neutrophils Absolute Auto 2.3 x10*3/uL (2.0-8.3); Neutrophils Percent Auto 53.1 % (45-73); Platelet Count 246 X10*3/uL (160-400); Red Blood Count 5.04 X10*6/uL (4.60-5.80); Red Cell Distribution Width 11.2 % (11.0-16.0); White Blood Count 4.3 X10*3/uL (4.8-10.8)
[2021-12-04 00:42] LABS: VBG Base Excess 0.4 mmol/L; VBG HCO3 27 mmol/L (22-26); VBG pCO2 50 mmHg; VBG pH 7.33 (7.32-7.43); VBG pO2 29 mmHg
[2021-12-04] MEDS: Lactated Ringers 1,000 ML 999 ML IV ×2 (00:53→01:21)
[2021-12-04 00:55] LABS: Acetone, serum QL Negative (Negative)
[2021-12-04 00:56] LABS: COVID-19 Test Negative (Negative); IDNOW Serial# 16C4AD1C
[2021-12-04 00:57] LABS: Lipase 62 U/L (8-78)
[2021-12-04 01:02] LABS: Troponin-I High Sensitivity 10.8 ng/L (<3.5-35.0)
[2021-12-04] MEDS: Insulin Regular, Human 100 UNIT/ML 3 ML VIAL 10 UNIT IVPUSH ×2 (01:13→02:22)
[2021-12-04 01:18] LABS: Appearance Urine CLEAR; Color Urine STRAW; Glucose Urine UA >=1000 MG/DL (NEG); Leukocyte Esterase Urine NEG (NEG); Nitrite Urine NEG (NEG); Specific Gravity - Urine <= 1.005 (1.005-1.025); Urine Blood NEG (NEG); Urine Ketones NEG (NEG); Urine Protein NEG (NEG-TRACE)
[2021-12-04 01:26] LABS: RBC Urine 0 /HPF (0); Squamous Epithelial Cell Urine TRACE /LPF; WBC Urine 0 /HPF (0-4)
[2021-12-04 01:32] LABS: Alanine Aminotransferase 27 U/L (0-40); Albumin Level 4.8 g/dL (3.5-5.0); Alkaline Phosphatase 92 U/L (39-117); Anion Gap 15 (12-20); Aspartate Amino Transferase 19 U/L (5-37); Bilirubin Total 0.6 mg/dL (0.0-1.0); Blood Urea Nitrogen 16 mg/dL (9-16); Carbon Dioxide 27 mmol/L (22-29); Chloride 83 mmol/L (96-108); Estimated Glomerular Filt Rate 35; Glucose Random 1069 mg/dL (60-115); Potassium 5.3 mmol/L (3.3-5.1); Sodium 120 mmol/L (135-145); Total Protein 8.6 g/dL (6.5-8.0)
--- NOTE | 2021-12-04 01:39 | ED.GENADULT ---
HPI - General Adult General Chief complaint: Dizziness Stated complaint: fainted, dizziness, vomiting Time Seen by Provider: 12/03/21 23:48 Source: patient and other (Girlfriend, Lucas) Mode of arrival: ambulatory Limitations: no limitations History of Present Illness HPI narrative: 41-year-old male who presents emergency department for evaluation multiple complaints. Patient states he has not been feeling well for approximately 1 month. He states that he has had a constant headache which she describes as a throbbing/sharp sensation located on the right side of his head. States that the headache is 10/10 at its worse and seems to be worse at night. He states that he has had increased thirst and urinary frequency. He has also noted blurred vision. He states that he has had a 30 lb weight loss over the past month. He is also complaining of heartburn like symptoms. He states that any time he eats he has pain in his epigastric area. Patient states that tonight he felt very lightheaded and dizzy and almost passed out while he was driving therefore came to the emergency department for evaluation. MD complaint: Headache Onset (ago): month(s) (1) Location: head (Right-sided) Radiation: non-radiation Severity: severe Severity scale (1-10): 10 Quality: stabbing and other (Thrive) Pain Consistency: constant (Worse at night) Relieving factors: none Exacerbating factors: none Associated symptoms: nausea/vomiting, weakness and other (Increased thirst, frequency, blurred vision, weight loss) Treatments prior to arrival: none Related Data Home Medications Medication Instructions Recorded Confirmed amlodipine 10 mg tablet 10 mg PO DAILY 06/16/20 atorvastatin 20 mg tablet 20 mg PO BEDTIME 06/16/20 hydralazine 25 mg tablet 25 mg PO BID 06/16/20 lisinopril 20 mg tablet 20 mg PO DAILY 06/16/20 Previous Rx's Medication Instructions Recorded ibuprofen 600 mg tablet 600 mg PO Q8H PRN pain #20 tabs 12/27/20 naproxen 500 mg tablet 500 mg PO BID PRN pain 7 days #14 11/08/21 tabs ofloxacin 0.3 % eye drops 2 drp ophthalmic (eye) QID #5 mL 11/08/21 Allergies Allergy/AdvReac Type Severity Reaction Status Date / Time No Known Allergies Allergy Verified 12/03/21 22:35 [No Known Allergies*] Review of Systems Review of Systems: Yes all other systems are reviewed and are negative [facility] Past Medical History [facility] Narrative: Past medical history: Reviewed below, diverticulitis. Past surgical history: Complicated diverticulitis requiring colectomy, colostomy with reversal. Social history: He denies tobacco use. He states he has not been drinking alcohol for over 2 months. He denies drug use. Medical History HTN (hypertension) Obesity (BMI 35.0-39.9 without comorbidity) FAUSTINO (obstructive sleep apnea) Panic attacks Snoring Social History Social History Substance Use Type: Marijuana Advance Directives: No Advance Directives Information Provided: Yes Physical Exam ED Vital Signs: Vital Signs - 24 hr 12/03/21 22:36 12/04/21 02:16 12/04/21 00:00 Temperature 98.2 F 98.7 F Pulse Rate 83 77 88 Respiratory Rate 16 18 16 Blood Pressure 136/99 H 154/102 H 155/72 H Pulse Oximetry 98 98 99 Oxygen Delivery Method Room Air Room Air Room Air 12/04/21 04:18 Temperature Pulse Rate 76 Respiratory Rate 18 Blood Pressure 133/92 H Pulse Oximetry 98 Oxygen Delivery Method Room Air BMI result Body Mass Index 30.7 Const General: cooperative and no acute distress Orientation/consciousness: oriented to person and oriented to place Limitations: no limitations HENMD Head: Yes normal to inspection, Yes normocephalic and Yes atraumatic Ears: external ears normal General nose exam: Normal external nose present Face and sinus: Yes normal facial exam Mouth: Normal oral and palatal mucosa present Throat: Yes posterior oropharynx normal Eyes General: appearance normal, both eyes and all related structures Pupils: Equal, round and reactive pupils present Neck Neck: Yes normal visual inspection, Yes no lymphadenopathy, Yes trachea midline and Yes supple Chest Chest palpation & inspection: normal inspection of the chest and normal palpation of entire chest wall Resp Effort & Inspection: normal respiratory effort and able to speak in complete sentences Auscultation: clear to auscultation bilaterally Cardio Rate: regular rate Rhythm: regular rhythm Heart sounds: S1 normal heart sound present, S2 normal heart sound present and no murmurs GI Inspection: Yes normal to inspection Palpation (GI): Soft to palpation, nontender and no guarding Auscultation: normal bowel sounds General: Yes no CVA tenderness Back/Spine/Pelvis Back: no CVA tenderness Skin General skin exam: no rashes or lesions noted Neuro General: oriented to person and oriented to place Cranial nerves: Yes CN's II-XII intact bilaterally and Yes Equal, round and reactive pupils present Cognition (Neuro): normal cognition Motor exam (neuro): 5/5 motor strength present throughout Extrem General: Yes normal to inspection Psych Appearance: grossly normal Speech and movement: Normal speech and movement present Affect: normal affect Attitude: cooperative Thought process: Normal thought process present Thought content: Normal thought content present Course Course Course Narrative: 41-year-old male who presents emergency department for evaluation of multiple complaints including headache, increased thirst, urinary frequency, blurred vision, heartburn like symptoms, weakness and 30 lb weight loss. The patient's symptoms were concerning for new onset diabetes. The patient's point of care glucose was above detectable limits. Patient was ordered to get lactated Ringer's 3 L IV, regular insulin 10 units IV. Patient's headache was treated with Toradol 30 mg IV, Reglan 10 mg IV and Benadryl 50 mg IV. 0144: Laboratory evaluation : WBC low 4300. PH normal 7.33. Glucose elevated 1069. Sodium low 120. Potassium high 5.3. BUN normal 16, creatinine high 2.08. Urinalysis positive for glucose otherwise unremarkable. Acetone negative. COVID-19 negative. Radiology evaluation: CT scan of the brain negative. Chest x-ray unremarkable. Patient's presentation is consistent with new onset diabetes, type 2 with hyperosmolar hyperglycemia. I did order an insulin drip on this patient. I will discuss admission with our superintendent ammunition storage. 0203: Did discuss the patient's presentation with the covering superintendent ammunition storage, Dr. Strong and and he recommended continuing with IV or subQ insulin . Patient is currently complaining of cramping in his lower extremities. Patient was given morphine 4 mg IV. I will repeat a BMP on him as well pain and continue to follow was clear care glucose. He was ordered to get 3rd L of normal saline with 20 mEq of potassium chloride at 125 cc an hour Is also given a 2nd dose of regular insulin 10 units IV. 0358: Repeat BMP revealed a sodium of 132, chloride of 93, creatinine of 1.69 and glucose of 538, this is improved from the 1st CMP. The patient repeat point of care glucose at 03:12 hours was 339. I will discuss admission with the covering hospitalist. 0505: I did discuss the patient's presentation with the covering hospitalist, Dr. Paniagua and the patient will be to the hospital service for further management. Medical Decision Making Lab Data Result diagrams: 12/04/21 00:33 12/04/21 02:11 Labs: Lab Results 12/04/21 12/04/21 12/04/21 Range/Units 00:01 00:33 00:33 WBC 4.3 L (4.8-10.8) X10*3/uL RBC 5.04 (4.60-5.80) X10*6/uL Hgb 14.7 (14.0-18.0) g/dl Hct 41.8 L (42.0-52.0) % MCV 82.9 (80.0-98.0) fL MCH 29.2 (27.0-33.0) pg MCHC 35.2 (31.0-36.0) g/dl RDW 11.2 (11.0-16.0) % Plt Count 246 (160-400) X10*3/uL MPV 10.8 (9.4-12.4) fL Immature Gran % (Auto) 0.5 H (0.0-0.4) % Neut % (Auto) 53.1 (45-73) % Lymph % (Auto) 34.3 (20-40) % Kendall % (Auto) 9.0 (2-11) % Eos % (Auto) 2.6 (0-4) % Baso % (Auto) 0.5 (0-2) % Lymph # (Auto) 1.5 (1.2-4.9) X10*3/uL Kendall # (Auto) 0.4 (0.1-1.2) X10*3/uL Eos # (Auto) 0.1 (0.0-0.4) X10*3/uL Baso # (Auto) 0.0 (0.0-0.2) X10*3/uL Abs Immat Gran (auto) 0.02 (0.00-0.03) X10*3/uL Absolute Neuts (auto) 2.3 (2.0-8.3) x10*3/uL Absolute Nucleated RBC 0.000 (0.0-0.012) X10*3/uL Nucleated RBC % (auto) 0.0 (0.0-0.2) /100WBC VBG pH (7.32-7.43) VBG pCO2 mmHg VBG pO2 mmHg VBG HCO3 (22-26) mmol/L VBG O2 Saturation % VBG Base Excess mmol/L Sodium (135-145) mmol/L Potassium (3.3-5.1) mmol/L Chloride (96-108) mmol/L Carbon Dioxide (22-29) mmol/L Anion Gap (12-20) BUN (9-16) mg/dL Creatinine (0.5-1.4) mg/dL Estim Creat Clear Calc Estimated GFR POC Glucose > 600 H* (60-115) mg/dL Random Glucose (60-115) mg/dL Calcium (8.4-10.2) mg/dL Total Bilirubin (0.0-1.0) mg/dL AST (5-37) U/L ALT (0-40) U/L Alkaline Phosphatase (39-117) U/L Troponin I High Sens 10.8 (<3.5-35.0) ng/L Total Protein (6.5-8.0) g/dL Albumin (3.5-5.0) g/dL Lipase (8-78) U/L Urine Color Urine Appearance Urine pH (5.0-8.0) Ur Specific Holmes (1.005-1.025) Urine Protein (NEG-TRACE) MG/DL Urine Glucose (UA) (NEG) MG/DL Urine Ketones (NEG) MG/DL Urine Blood (NEG) Urine Nitrite (NEG) Ur Leukocyte Esterase (NEG) Urine RBC (0) /HPF Urine WBC (0-4) /HPF Ur Squamous Epith Cells /LPF Urine Bacteria /LPF Acetone, Qual (Negative) COVID-19 (JULIO) (Negative) COVID-19 Clin Com 12/04/21 12/04/21 12/04/21 Range/Units 00:33 00:33 00:36 WBC (4.8-10.8) X10*3/uL RBC (4.60-5.80) X10*6/uL Hgb (14.0-18.0) g/dl Hct (42.0-52.0) % MCV (80.0-98.0) fL MCH (27.0-33.0) pg MCHC (31.0-36.0) g/dl RDW (11.0-16.0) % Plt Count (160-400) X10*3/uL MPV (9.4-12.4) fL Immature Gran % (Auto) (0.0-0.4) % Neut % (Auto) (45-73) % Lymph % (Auto) (20-40) % Kendall % (Auto) (2-11) % Eos % (Auto) (0-4) % Baso % (Auto) (0-2) % Lymph # (Auto) (1.2-4.9) X10*3/uL Kendall # (Auto) (0.1-1.2) X10*3/uL Eos # (Auto) (0.0-0.4) X10*3/uL Baso # (Auto) (0.0-0.2) X10*3/uL Abs Immat Gran (auto) (0.00-0.03) X10*3/uL Absolute Neuts (auto) (2.0-8.3) x10*3/uL Absolute Nucleated RBC (0.0-0.012) X10*3/uL Nucleated RBC % (auto) (0.0-0.2) /100WBC VBG pH 7.33 (7.32-7.43) VBG pCO2 50 mmHg VBG pO2 29 mmHg VBG HCO3 27 H (22-26) mmol/L VBG O2 Saturation 38.0 % VBG Base Excess 0.4 mmol/L Sodium 120 L* (135-145) mmol/L Potassium 5.3 H D (3.3-5.1) mmol/L Chloride 83 L (96-108) mmol/L Carbon Dioxide 27 (22-29) mmol/L Anion Gap 15 (12-20) BUN 16 (9-16) mg/dL Creatinine 2.08 H (0.5-1.4) mg/dL Estim Creat Clear Calc 48.0 Estimated GFR 35 POC Glucose (60-115) mg/dL Random Glucose 1069 H* (60-115) mg/dL Calcium 10.0 D (8.4-10.2) mg/dL Total Bilirubin 0.6 (0.0-1.0) mg/dL AST 19 D (5-37) U/L ALT 27 (0-40) U/L Alkaline Phosphatase 92 (39-117) U/L Troponin I High Sens (<3.5-35.0) ng/L Total Protein 8.6 H (6.5-8.0) g/dL Albumin 4.8 (3.5-5.0) g/dL Lipase 62 (8-78) U/L Urine Color Urine Appearance Urine pH (5.0-8.0) Ur Specific Holmes (1.005-1.025) Urine Protein (NEG-TRACE) MG/DL Urine Glucose (UA) (NEG) MG/DL Urine Ketones (NEG) MG/DL Urine Blood (NEG) Urine Nitrite (NEG) Ur Leukocyte Esterase (NEG) Urine RBC (0) /HPF Urine WBC (0-4) /HPF Ur Squamous Epith Cells /LPF Urine Bacteria /LPF Acetone, Qual Negative (Negative) COVID-19 (JULIO) Negative (Negative) COVID-19 Clin Com See Note 12/04/21 12/04/21 12/04/21 Range/Units 01:11 02:05 02:11 WBC (4.8-10.8) X10*3/uL RBC (4.60-5.80) X10*6/uL Hgb (14.0-18.0) g/dl Hct (42.0-52.0) % MCV (80.0-98.0) fL MCH (27.0-33.0) pg MCHC (31.0-36.0) g/dl RDW (11.0-16.0) % Plt Count (160-400) X10*3/uL MPV (9.4-12.4) fL Immature Gran % (Auto) (0.0-0.4) % Neut % (Auto) (45-73) % Lymph % (Auto) (20-40) % Kendall % (Auto) (2-11) % Eos % (Auto) (0-4) % Baso % (Auto) (0-2) % Lymph # (Auto) (1.2-4.9) X10*3/uL Kendall # (Auto) (0.1-1.2) X10*3/uL Eos # (Auto) (0.0-0.4) X10*3/uL Baso # (Auto) (0.0-0.2) X10*3/uL Abs Immat Gran (auto) (0.00-0.03) X10*3/uL Absolute Neuts (auto) (2.0-8.3) x10*3/uL Absolute Nucleated RBC (0.0-0.012) X10*3/uL Nucleated RBC % (auto) (0.0-0.2) /100WBC VBG pH (7.32-7.43) VBG pCO2 mmHg VBG pO2 mmHg VBG HCO3 (22-26) mmol/L VBG O2 Saturation % VBG Base Excess mmol/L Sodium 132 L (135-145) mmol/L Potassium 3.8 D (3.3-5.1) mmol/L Chloride 93 L (96-108) mmol/L Carbon Dioxide 26 (22-29) mmol/L Anion Gap 17 (12-20) BUN 16 (9-16) mg/dL Creatinine 1.69 H (0.5-1.4) mg/dL Estim Creat Clear Calc 59.1 Estimated GFR 45 POC Glucose 532 H* (60-115) mg/dL Random Glucose 543 H* (60-115) mg/dL Calcium 9.9 (8.4-10.2) mg/dL Total Bilirubin (0.0-1.0) mg/dL AST (5-37) U/L ALT (0-40) U/L Alkaline Phosphatase (39-117) U/L Troponin I High Sens (<3.5-35.0) ng/L Total Protein (6.5-8.0) g/dL Albumin (3.5-5.0) g/dL Lipase (8-78) U/L Urine Color STRAW Urine Appearance CLEAR Urine pH 6.0 (5.0-8.0) Ur Specific Holmes <= 1.005 (1.005-1.025) Urine Protein NEG (NEG-TRACE) MG/DL Urine Glucose (UA) >=1000 H (NEG) MG/DL Urine Ketones NEG (NEG) MG/DL Urine Blood NEG (NEG) Urine Nitrite NEG (NEG) Ur Leukocyte Esterase NEG (NEG) Urine RBC 0 (0) /HPF Urine WBC 0 (0-4) /HPF Ur Squamous Epith Cells TRACE /LPF Urine Bacteria NONE /LPF Acetone, Qual (Negative) COVID-19 (JULIO) (Negative) COVID-19 Clin Com 12/04/21 12/04/21 Range/Units 03:12 04:40 WBC (4.8-10.8) X10*3/uL RBC (4.60-5.80) X10*6/uL Hgb (14.0-18.0) g/dl Hct (42.0-52.0) % MCV (80.0-98.0) fL MCH (27.0-33.0) pg MCHC (31.0-36.0) g/dl RDW (11.0-16.0) % Plt Count (160-400) X10*3/uL MPV (9.4-12.4) fL Immature Gran % (Auto) (0.0-0.4) % Neut % (Auto) (45-73) % Lymph % (Auto) (20-40) % Kendall % (Auto) (2-11) % Eos % (Auto) (0-4) % Baso % (Auto) (0-2) % Lymph # (Auto) (1.2-4.9) X10*3/uL Kendall # (Auto) (0.1-1.2) X10*3/uL Eos # (Auto) (0.0-0.4) X10*3/uL Baso # (Auto) (0.0-0.2) X10*3/uL Abs Immat Gran (auto) (0.00-0.03) X10*3/uL Absolute Neuts (auto) (2.0-8.3) x10*3/uL Absolute Nucleated RBC (0.0-0.012) X10*3/uL Nucleated RBC % (auto) (0.0-0.2) /100WBC VBG pH (7.32-7.43) VBG pCO2 mmHg VBG pO2 mmHg VBG HCO3 (22-26) mmol/L VBG O2 Saturation % VBG Base Excess mmol/L Sodium (135-145) mmol/L Potassium (3.3-5.1) mmol/L Chloride (96-108) mmol/L Carbon Dioxide (22-29) mmol/L Anion Gap (12-20) BUN (9-16) mg/dL Creatinine (0.5-1.4) mg/dL Estim Creat Clear Calc Estimated GFR POC Glucose 339 H 370 H* (60-115) mg/dL Random Glucose (60-115) mg/dL Calcium (8.4-10.2) mg/dL Total Bilirubin (0.0-1.0) mg/dL AST (5-37) U/L ALT (0-40) U/L Alkaline Phosphatase (39-117) U/L Troponin I High Sens (<3.5-35.0) ng/L Total Protein (6.5-8.0) g/dL Albumin (3.5-5.0) g/dL Lipase (8-78) U/L Urine Color Urine Appearance Urine pH (5.0-8.0) Ur Specific Holmes (1.005-1.025) Urine Protein (NEG-TRACE) MG/DL Urine Glucose (UA) (NEG) MG/DL Urine Ketones (NEG) MG/DL Urine Blood (NEG) Urine Nitrite (NEG) Ur Leukocyte Esterase (NEG) Urine RBC (0) /HPF Urine WBC (0-4) /HPF Ur Squamous Epith Cells /LPF Urine Bacteria /LPF Acetone, Qual (Negative) COVID-19 (JULIO) (Negative) COVID-19 Clin Com Critical Care Time Critical Care Time Critical Care Time: Yes Total Critical Care Time: 80 Attestation: Critical Care: The patient was critically ill with a high probability of imminent or life threatening deterioration. I spent greater than 30 minutes of discontinuous time evaluating the patient,delivering critical care at the bedside, discussing and evaluating pertinent data with consultants. Critical care time does not include time spent performing separately billable procedures or teaching. Total time spent performing critical care was 80 minutes. Discharge Plan Discharge Clinical Impression: Diabetes mellitus, new onset, Acute hyperglycemia Patient Disposition: Admitted As Inpatient
[2021-12-04] MEDS: Morphine Sulfate 4 MG/ML CARTRIDGE IVPUSH (01:53)
[2021-12-04 02:09] LABS: Glucose, Whole Blood 532 mg/dL (60-115)
[2021-12-04 03:12] LABS: Anion Gap 17 (12-20); Blood Urea Nitrogen 16 mg/dL (9-16); Calcium 9.9 mg/dL (8.4-10.2); Carbon Dioxide 26 mmol/L (22-29); Chloride 93 mmol/L (96-108); Creatinine Clr Calc Pharmacy 59.1; Estimated Glomerular Filt Rate 45; Glucose Random 543 mg/dL (60-115); Potassium 3.8 mmol/L (3.3-5.1); Sodium 132 mmol/L (135-145)
[2021-12-04 03:16] LABS: Glucose, Whole Blood 339 mg/dL (60-115)
[2021-12-04 04:44] LABS: Glucose, Whole Blood 370 mg/dL (60-115)
--- NOTE | 2021-12-04 05:15 | P.HPHOSP_ITS ---
History of Present Illness Date of Service: 12/04/21 Chief Complaint: Dizzy 41-year-old male with a past medical history of hypertension, hyperlipidemia presented to the hospital today with a chief complaint of not feeling well. Patient reports that for the past few days he has been not feeling well, having intermittent episodes of dizziness, headaches assist with blurry visions. Denies any numbness tingling or focal weakness. Patient denies any chest pain or palpitations. Mentions that he has been having increased thirst and also urinating more lately. Denies any fevers and chills. Denies any abdominal discomfort. Patient mentions he has been feeling intermittently dizzy. Denies any falls or trauma. Review of all other systems is negative except mentioned above ER course: Per ER team patient on presentation noted of nonfocal examination; CT head showed no acute findings; on labs noted to have elevated blood glucose levels of 2068. Patient was given 2 L of IV fluids. Also noted to YESSENIA. The wall of fingerstick glucose start improved. Discussed with ICU-recommended admission to the medical floors. Patient fingerstick glucose improved to 300s after 2 times IV push regular i nsulin. Admitted to the hospital for further [facility] Medical History HTN (hypertension) Obesity (BMI 35.0-39.9 without comorbidity) FAUSTINO (obstructive sleep apnea) Panic attacks Snoring Social History Substance Use Type: Marijuana Advance Directives: No Advance Directives Information Provided: Yes Meds Allergies Allergy/AdvReac Type Severity Reaction Status Date / Time No Known Allergies Allergy Verified 12/03/21 22:35 [No Known Allergies*] Active Medications: Current Medications Acetaminophen (Acetaminophen 325 Mg Tablet) 650 mg PO Q6H PRN PRN Reason: Pain, Mild (Pain Scale 1-3) Dextrose (Dextrose 50 % 25 Gm/50 Ml Syringe) 25 gm IVPUSH Q15M PRN; Protocol PRN Reason: per Hypoglycemia Standing Ord. Glucose (Glucose Gel 15 Gm Gel..Gram.) 15 gm PO Q15M PRN; Protocol PRN Reason: per Hypoglycemia Standing Ord. Heparin Sodium (Porcine) (Heparin Sodium,Porcine 5,000 Unit/Ml Vial) 5,000 unit SUBCUT Q8H [facility] Insulin Human Regular (Myxredlin) 100 unit in 100 mls @ 0 mls/hr IVCONT .Q0M [facility]; Protocol Potassium Chloride/Sodium Chloride () 40 meq in 1,000 mls @ 125 mls/hr IVCONT .Q8H [facility] Last Admin: 12/04/21 02:24 Dose: Not Given Sodium Chloride (Ns) 1,000 mls @ 100 mls/hr IVCONT .Q10H [facility] Insulin Glargine (Insulin Glargine,Hum.Rec.Anlog 100 Unit/Ml 10 Ml Vial) 20 unit SUBCUT DAILY [facility] Insulin Human Lispro (Insulin Lispro 100 Unit/Ml 3 Ml Vial) 0 unit SUBCUT QIDACHS [facility]; Protocol Melatonin (Melatonin 3 Mg Tablet) 6 mg PO BEDTIME PRN PRN Reason: Insomnia Senna (Sennosides 8.6 Mg Tablet) 17.2 mg PO BEDTIME PRN PRN Reason: Constipation Sodium Chloride (0.9 % Sodium Chloride Flush 3 Ml Syringe) 3 ml IVFLUSH QSHIFT [facility] Home Medications Medication Instructions Recorded Confirmed Last Taken Type amlodipine 10 mg tablet 10 mg PO DAILY 06/16/20 Unknown History atorvastatin 20 mg tablet 20 mg PO BEDTIME 06/16/20 Unknown History hydralazine 25 mg tablet 25 mg PO BID 06/16/20 Unknown History lisinopril 20 mg tablet 20 mg PO DAILY 06/16/20 Unknown History Physical Exam Vital Signs and Narrative: Vital Signs: Last Vital Signs Temp 98.7 F 12/04/21 00:00 Pulse 76 12/04/21 04:18 Resp 18 12/04/21 04:18 BP 133/92 H 12/04/21 04:18 Pulse Ox 98 12/04/21 04:18 O2 Del Method 12/04/21 04:18 BMI result Body Mass Index 30.7 Gen: Appears be in no acute distress HEENT: NCAT, Moist mucosa. Pulmonary: Vesicular breath sounds, fair air entry CVS: Normal S1-S2 Abdomen: BS+, Soft, Nontender Extremities: Warm well perfused Neuro: Alert and awake. Nonfocal Results Labs CBC and Chem 7: 12/04/21 00:33 12/04/21 02:11 Labs: Laboratory Results - last 24 hr 12/04/21 12/04/21 12/04/21 00:01 00:33 00:33 MCV 82.9 MCH 29.2 MCHC 35.2 RDW 11.2 Plt Count 246 MPV 10.8 Immature Gran % (Auto) 0.5 H Neut % (Auto) 53.1 Lymph % (Auto) 34.3 [place] % (Auto) 9.0 Eos % (Auto) 2.6 Baso % (Auto) 0.5 Lymph # (Auto) 1.5 [place] # (Auto) 0.4 Eos # (Auto) 0.1 Baso # (Auto) 0.0 Abs Immat Gran (auto) 0.02 Absolute Neuts (auto) 2.3 Absolute Nucleated RBC 0.000 Nucleated RBC % (auto) 0.0 VBG pH VBG pCO2 VBG pO2 VBG HCO3 VBG O2 Saturation VBG Base Excess Anion Gap Estim Creat Clear Calc Estimated GFR POC Glucose > 600 H* Random Glucose Calcium Total Bilirubin AST ALT Alkaline Phosphatase Troponin I High Sens 10.8 Total Protein Albumin Lipase Urine Color Urine Appearance Urine pH Ur Specific [place] Urine Protein Urine Glucose (UA) Urine Ketones Urine Blood Urine Nitrite Ur Leukocyte Esterase Urine RBC Urine WBC Ur Squamous Epith Cells Urine Bacteria Acetone, Qual COVID-19 (JULIO) COVID-19 Clin Com 12/04/21 12/04/21 12/04/21 00:33 00:33 00:36 MCV MCH MCHC RDW Plt Count MPV Immature Gran % (Auto) Neut % (Auto) Lymph % (Auto) [place] % (Auto) Eos % (Auto) Baso % (Auto) Lymph # (Auto) [place] # (Auto) Eos # (Auto) Baso # (Auto) Abs Immat Gran (auto) Absolute Neuts (auto) Absolute Nucleated RBC Nucleated RBC % (auto) VBG pH 7.33 VBG pCO2 50 VBG pO2 29 VBG HCO3 27 H VBG O2 Saturation 38.0 VBG Base Excess 0.4 Anion Gap 15 Estim Creat Clear Calc 48.0 Estimated GFR 35 POC Glucose Random Glucose 1069 H* Calcium 10.0 D Total Bilirubin 0.6 AST 19 D ALT 27 Alkaline Phosphatase 92 Troponin I High Sens Total Protein 8.6 H Albumin 4.8 Lipase 62 Urine Color Urine Appearance Urine pH Ur Specific [place] Urine Protein Urine Glucose (UA) Urine Ketones Urine Blood Urine Nitrite Ur Leukocyte Esterase Urine RBC Urine WBC Ur Squamous Epith Cells Urine Bacteria Acetone, Qual Negative COVID-19 (JULIO) Negative COVID-19 Clin Com See Note 12/04/21 12/04/21 12/04/21 01:11 02:05 02:11 MCV MCH MCHC RDW Plt Count MPV Immature Gran % (Auto) Neut % (Auto) Lymph % (Auto) [place] % (Auto) Eos % (Auto) Baso % (Auto) Lymph # (Auto) [place] # (Auto) Eos # (Auto) Baso # (Auto) Abs Immat Gran (auto) Absolute Neuts (auto) Absolute Nucleated RBC Nucleated RBC % (auto) VBG pH VBG pCO2 VBG pO2 VBG HCO3 VBG O2 Saturation VBG Base Excess Anion Gap 17 Estim Creat Clear Calc 59.1 Estimated GFR 45 POC Glucose 532 H* Random Glucose 543 H* Calcium 9.9 Total Bilirubin AST ALT Alkaline Phosphatase Troponin I High Sens Total Protein Albumin Lipase Urine Color STRAW Urine Appearance CLEAR Urine pH 6.0 Ur Specific [place] <= 1.005 Urine Protein NEG Urine Glucose (UA) >=1000 H Urine Ketones NEG Urine Blood NEG Urine Nitrite NEG Ur Leukocyte Esterase NEG Urine RBC 0 Urine WBC 0 Ur Squamous Epith Cells TRACE Urine Bacteria NONE Acetone, Qual COVID-19 (JULIO) COVID-19 Clin Com 12/04/21 12/04/21 03:12 04:40 MCV MCH MCHC RDW Plt Count MPV Immature Gran % (Auto) Neut % (Auto) Lymph % (Auto) [place] % (Auto) Eos % (Auto) Baso % (Auto) Lymph # (Auto) [place] # (Auto) Eos # (Auto) Baso # (Auto) Abs Immat Gran (auto) Absolute Neuts (auto) Absolute Nucleated RBC Nucleated RBC % (auto) VBG pH VBG pCO2 VBG pO2 VBG HCO3 VBG O2 Saturation VBG Base Excess Anion Gap Estim Creat Clear Calc Estimated GFR POC Glucose 339 H 370 H* Random Glucose Calcium Total Bilirubin AST ALT Alkaline Phosphatase Troponin I High Sens Total Protein Albumin Lipase Urine Color Urine Appearance Urine pH Ur Specific [place] Urine Protein Urine Glucose (UA) Urine Ketones Urine Blood Urine Nitrite Ur Leukocyte Esterase Urine RBC Urine WBC Ur Squamous Epith Cells Urine Bacteria Acetone, Qual COVID-19 (JULIO) COVID-19 Clin Com Imaging Radiologist's Impressions: Impressions Chest X-Ray 12/03/21 23:17 IMPRESSION: No acute cardiopulmonary findings. Head CT 12/04/21 00:25 IMPRESSION: No acute intracranial pathology. Assessment and Plan (1) Diabetes mellitus, new onset: Status: Acute (2) Acute hyperglycemia: Status: Acute Plan 41-year-old male with a past medical history of hypertension, hyperlipidemia presented to the hospital today with a chief complaint of not feeling well/ polyuria/ polydipsia/dizziness. admitted for following Dizziness: Exam nonfocal. CT head showed no acute findings. Fall precautions. PT/ OT eventually. New onset diabetes: Patient fingerstick glucose on presentation was 1069; serum osmolality pending. POC Glucose improved with IV fluids and regular insulin IV push. Will keep the patient on Lantus plus insulin sliding scale. Monitor fingerstick glucose closely. Hemoglobin A1c. Endocrine follow-up recommended. Educated on diet and lifestyle modifications. Pseudo hyponatremia: Patient's sodium levels on presentation was 120. Secondary to hypoglycemia. After improving fingerstick glucose sodium levels improving. YESSENIA: Patient's creatinine on presentation was 2.1. Unknown baseline. Improved to 1.69 after IV fluids. Will continue maintenance IV fluids. Avoid nephrotoxins. History of hypertension: Hold home amlodipine, lisinopril. DVT prophylaxis: Subcu heparin Code status: Full code Quality Stroke Does the patient have a stroke diagnosis?: No VTE Prior VTE?: No VTE Risk Level:: Medical - moderate - high VTE Device Contraindication: Treatment Not Indicated VTE Drug Contraindication: N/A - Med Ordered
[2021-12-04] MEDS: 0.9 % Sodium Chloride 1,000 ML 100 ML IVCONT ×2 (05:21→15:09)
[2021-12-04] MEDS: KCl 20 mEq in 0.45% Sod 20 MEQ/1,000 ML IV.SOLN 125 MEQ IVCONT (05:22)
[2021-12-04 05:51] LABS: Osmolality, Serum 325 mosm/kg (281-305)
[2021-12-04 07:31] LABS: Glucose, Whole Blood 366 mg/dL (60-115)
[2021-12-04] MEDS: amLODIPine Besylate 5 MG TABLET PO (08:05)
[2021-12-04] MEDS: 0.9 % Sodium Chloride Flush 3 ML SYRINGE IVFLUSH ×2 (08:06→20:58)
[2021-12-04] MEDS: Insulin Lispro 100 UNIT/ML 3 ML VIAL SUBCUT ×8 (08:06→20:57)
--- NOTE | 2021-12-04 08:08 | PHA.MEDREC ---
Pharmacy Consult ? Medication Reconciliation Pharmacy has completed the medication reconciliation.
--- NOTE | 2021-12-04 08:15 | PC.NURSE ---
patient awake and alert. skin pwd, resp even and non labored. speaking in full, clear sentences. denies pain. insulin administered per orders, Dr. Frye aware of blood sugar of 366 this morning. patient awaiting bed assignment.
[2021-12-04 08:28] LABS: Hemoglobin A1c % > 14.0 %
[2021-12-04] MEDS: Insulin Glargine,Hum.rec.anlog 100 UNIT/ML 10 ML VIAL 20 UNIT SUBCUT (10:02)
[2021-12-04 11:06] LABS: Glucose, Whole Blood 366 mg/dL (60-115)
[2021-12-04 11:06] LABS: Glucose, Whole Blood 504 mg/dL (60-115)
--- NOTE | 2021-12-04 11:41 | P.PNIM_ITS ---
Subjective Subjective Date of Service: 12/04/21 Interval History: cc: weight loss, n/v interval history:mildly improved Cardiovascular Cardiovascular: Reports no additional cardiovascular complaints Gastrointestinal Gastrointestinal: Reports no additional gastrointestinal complaints Physical Exam Vital Signs: Vital Signs: Last Vital Signs Temp 98.6 F 12/04/21 05:26 Pulse 84 12/04/21 09:51 Resp 18 12/04/21 09:51 BP 127/97 H 12/04/21 09:51 Pulse Ox 98 12/04/21 09:51 O2 Del Method 12/04/21 09:51 BMI result Body Mass Index 30.7 General: AO X 3, no acute distress Resp: CTA bilateral, no accessory muscles used CVS: S1,S2,RRR GI: soft, non tender, non distended Neuro: motor grossly intact, alert Psych: appropriate affect, appropriate insight Objective Data Active Medications Acetaminophen (Acetaminophen 325 Mg Tablet) 650 mg PO Q6H PRN PRN Reason: Pain, Mild (Pain Scale 1-3) Amlodipine Besylate (Amlodipine Besylate 5 Mg Tablet) 5 mg PO DAILY [facility]; Protocol Last Admin: 12/04/21 08:05 Dose: 5 mg Documented By: MINDY Atorvastatin Calcium (Atorvastatin Calcium 20 Mg Tablet) 20 mg PO BEDTIME [facility] Dextrose (Dextrose 50 % 25 Gm/50 Ml Syringe) 25 gm IVPUSH Q15M PRN; Protocol PRN Reason: per Hypoglycemia Standing Ord. Glucose (Glucose Gel 15 Gm Gel..Gram.) 15 gm PO Q15M PRN; Protocol PRN Reason: per Hypoglycemia Standing Ord. Heparin Sodium (Porcine) (Heparin Sodium,Porcine 5,000 Unit/Ml Vial) 5,000 unit SUBCUT Q8H [facility] Last Admin: 12/04/21 05:30 Dose: Not Given Documented By: MEGAN Non-Admin Reason: Patient Refused Insulin Human Regular (Myxredlin) 100 unit in 100 mls @ 0 mls/hr IVCONT .Q0M [facility]; Protocol Sodium Chloride (Ns) 1,000 mls @ 100 mls/hr IVCONT .Q10H [facility] Last Admin: 12/04/21 05:21 Dose: 100 mls/hr Documented By: MEGAN Insulin Glargine (Insulin Glargine,Hum.Rec.Anlog 100 Unit/Ml 10 Ml Vial) 20 unit SUBCUT DAILY [facility] Last Admin: 12/04/21 10:02 Dose: 20 unit Documented By: MINDY Insulin Human Lispro (Insulin Lispro 100 Unit/Ml 3 Ml Vial) 0 unit SUBCUT QIDACHS [facility]; Protocol Last Admin: 12/04/21 08:06 Dose: 10 unit Documented By: MINDY Insulin Human Lispro (Insulin Lispro 100 Unit/Ml 3 Ml Vial) 5 unit SUBCUT QIDACHS [facility] Last Admin: 12/04/21 08:06 Dose: 5 unit Documented By: MINDY Melatonin (Melatonin 3 Mg Tablet) 6 mg PO BEDTIME PRN PRN Reason: Insomnia Pharmacy Consult (Consult Rx Perform Med Rec) 1 each MISCELLANE ONCE PRN PRN Reason: Consult order Senna (Sennosides 8.6 Mg Tablet) 17.2 mg PO BEDTIME PRN PRN Reason: Constipation Sodium Chloride (0.9 % Sodium Chloride Flush 3 Ml Syringe) 3 ml IVFLUSH QSHIFT [facility] Last Admin: 12/04/21 08:06 Dose: 3 ml Documented By: MINDY Labs CBC & Chem 7: 12/04/21 00:33 12/04/21 02:11 Labs: Laboratory Results - last 24 hr 12/04/21 12/04/21 12/04/21 00:01 00:33 00:33 MCV 82.9 MCH 29.2 MCHC 35.2 RDW 11.2 Plt Count 246 MPV 10.8 Immature Gran % (Auto) 0.5 H Neut % (Auto) 53.1 Lymph % (Auto) 34.3 [place] % (Auto) 9.0 Eos % (Auto) 2.6 Baso % (Auto) 0.5 Lymph # (Auto) 1.5 [place] # (Auto) 0.4 Eos # (Auto) 0.1 Baso # (Auto) 0.0 Abs Immat Gran (auto) 0.02 Absolute Neuts (auto) 2.3 Absolute Nucleated RBC 0.000 Nucleated RBC % (auto) 0.0 VBG pH VBG pCO2 VBG pO2 VBG HCO3 VBG O2 Saturation VBG Base Excess Anion Gap Estim Creat Clear Calc Estimated GFR POC Glucose > 600 H* Random Glucose Estimat Average Glucose Hemoglobin A1c % Osmolality Calcium Total Bilirubin AST ALT Alkaline Phosphatase Troponin I High Sens 10.8 Total Protein Albumin Lipase Urine Color Urine Appearance Urine pH Ur Specific [place] Urine Protein Urine Glucose (UA) Urine Ketones Urine Blood Urine Nitrite Ur Leukocyte Esterase Urine RBC Urine WBC Ur Squamous Epith Cells Urine Bacteria Acetone, Qual COVID-19 (JULIO) COVID-19 Clin Com 12/04/21 12/04/21 12/04/21 00:33 00:33 00:33 MCV MCH MCHC RDW Plt Count MPV Immature Gran % (Auto) Neut % (Auto) Lymph % (Auto) [place] % (Auto) Eos % (Auto) Baso % (Auto) Lymph # (Auto) [place] # (Auto) Eos # (Auto) Baso # (Auto) Abs Immat Gran (auto) Absolute Neuts (auto) Absolute Nucleated RBC Nucleated RBC % (auto) VBG pH VBG pCO2 VBG pO2 VBG HCO3 VBG O2 Saturation VBG Base Excess Anion Gap 15 Estim Creat Clear Calc 48.0 Estimated GFR 35 POC Glucose Random Glucose 1069 H* Estimat Average Glucose Hemoglobin A1c % Osmolality 325 H Calcium 10.0 D Total Bilirubin 0.6 AST 19 D ALT 27 Alkaline Phosphatase 92 Troponin I High Sens Total Protein 8.6 H Albumin 4.8 Lipase 62 Urine Color Urine Appearance Urine pH Ur Specific [place] Urine Protein Urine Glucose (UA) Urine Ketones Urine Blood Urine Nitrite Ur Leukocyte Esterase Urine RBC Urine WBC Ur Squamous Epith Cells Urine Bacteria Acetone, Qual Negative COVID-19 (JULIO) Negative COVID-19 Clin Com See Note 12/04/21 12/04/21 12/04/21 00:33 00:36 01:11 MCV MCH MCHC RDW Plt Count MPV Immature Gran % (Auto) Neut % (Auto) Lymph % (Auto) [place] % (Auto) Eos % (Auto) Baso % (Auto) Lymph # (Auto) [place] # (Auto) Eos # (Auto) Baso # (Auto) Abs Immat Gran (auto) Absolute Neuts (auto) Absolute Nucleated RBC Nucleated RBC % (auto) VBG pH 7.33 VBG pCO2 50 VBG pO2 29 VBG HCO3 27 H VBG O2 Saturation 38.0 VBG Base Excess 0.4 Anion Gap Estim Creat Clear Calc Estimated GFR POC Glucose Random Glucose Estimat Average Glucose TNP Hemoglobin A1c % > 14.0 Osmolality Calcium Total Bilirubin AST ALT Alkaline Phosphatase Troponin I High Sens Total Protein Albumin Lipase Urine Color STRAW Urine Appearance CLEAR Urine pH 6.0 Ur Specific [place] <= 1.005 Urine Protein NEG Urine Glucose (UA) >=1000 H Urine Ketones NEG Urine Blood NEG Urine Nitrite NEG Ur Leukocyte Esterase NEG Urine RBC 0 Urine WBC 0 Ur Squamous Epith Cells TRACE Urine Bacteria NONE Acetone, Qual COVID-19 (JULIO) COVID-19 Clin Com 12/04/21 12/04/21 12/04/21 02:05 02:11 03:12 MCV MCH MCHC RDW Plt Count MPV Immature Gran % (Auto) Neut % (Auto) Lymph % (Auto) [place] % (Auto) Eos % (Auto) Baso % (Auto) Lymph # (Auto) [place] # (Auto) Eos # (Auto) Baso # (Auto) Abs Immat Gran (auto) Absolute Neuts (auto) Absolute Nucleated RBC Nucleated RBC % (auto) VBG pH VBG pCO2 VBG pO2 VBG HCO3 VBG O2 Saturation VBG Base Excess Anion Gap 17 Estim Creat Clear Calc 59.1 Estimated GFR 45 POC Glucose 532 H* 339 H Random Glucose 543 H* Estimat Average Glucose Hemoglobin A1c % Osmolality Calcium 9.9 Total Bilirubin AST ALT Alkaline Phosphatase Troponin I High Sens Total Protein Albumin Lipase Urine Color Urine Appearance Urine pH Ur Specific [place] Urine Protein Urine Glucose (UA) Urine Ketones Urine Blood Urine Nitrite Ur Leukocyte Esterase Urine RBC Urine WBC Ur Squamous Epith Cells Urine Bacteria Acetone, Qual COVID-19 (JULIO) COVID-19 Clin Com 12/04/21 12/04/21 12/04/21 04:40 07:23 09:52 MCV MCH MCHC RDW Plt Count MPV Immature Gran % (Auto) Neut % (Auto) Lymph % (Auto) [place] % (Auto) Eos % (Auto) Baso % (Auto) Lymph # (Auto) [place] # (Auto) Eos # (Auto) Baso # (Auto) Abs Immat Gran (auto) Absolute Neuts (auto) Absolute Nucleated RBC Nucleated RBC % (auto) VBG pH VBG pCO2 VBG pO2 VBG HCO3 VBG O2 Saturation VBG Base Excess Anion Gap Estim Creat Clear Calc Estimated GFR POC Glucose 370 H* 366 H* 504 H* Random Glucose Estimat Average Glucose Hemoglobin A1c % Osmolality Calcium Total Bilirubin AST ALT Alkaline Phosphatase Troponin I High Sens Total Protein Albumin Lipase Urine Color Urine Appearance Urine pH Ur Specific [place] Urine Protein Urine Glucose (UA) Urine Ketones Urine Blood Urine Nitrite Ur Leukocyte Esterase Urine RBC Urine WBC Ur Squamous Epith Cells Urine Bacteria Acetone, Qual COVID-19 (JULIO) COVID-19 Clin Com 12/04/21 11:03 MCV MCH MCHC RDW Plt Count MPV Immature Gran % (Auto) Neut % (Auto) Lymph % (Auto) [place] % (Auto) Eos % (Auto) Baso % (Auto) Lymph # (Auto) [place] # (Auto) Eos # (Auto) Baso # (Auto) Abs Immat Gran (auto) Absolute Neuts (auto) Absolute Nucleated RBC Nucleated RBC % (auto) VBG pH VBG pCO2 VBG pO2 VBG HCO3 VBG O2 Saturation VBG Base Excess Anion Gap Estim Creat Clear Calc Estimated GFR POC Glucose 366 H* Random Glucose Estimat Average Glucose Hemoglobin A1c % Osmolality Calcium Total Bilirubin AST ALT Alkaline Phosphatase Troponin I High Sens Total Protein Albumin Lipase Urine Color Urine Appearance Urine pH Ur Specific [place] Urine Protein Urine Glucose (UA) Urine Ketones Urine Blood Urine Nitrite Ur Leukocyte Esterase Urine RBC Urine WBC Ur Squamous Epith Cells Urine Bacteria Acetone, Qual COVID-19 (JULIO) COVID-19 Clin Com Assessment and Plan (1) Diabetes mellitus, new onset: Status: Acute Plan 41M presented with n/v, weight loss new onset DM with hyperglycemia no dka continue basal bolus insulin, monitor sugars closely, iv hydration htn amlodipine lisinopril on hold for adrian adrian due to dehydration from osmotic polyuria from hyperlgycemia ivf, monitor holding pito-i obesity wegiht loss hld statin steatohepatitis suspect LITTLE dvt prophylaxis - hep sq full code reason for continued hospitalization:ivf for adrian, managing hyperglycemia Quality Stroke Does the patient have a stroke diagnosis?: No VTE Prior VTE?: No VTE Risk Level:: Medical - moderate - high VTE Device Contraindication: Treatment Not Indicated VTE Drug Contraindication: N/A - Med Ordered
[2021-12-04 12:48] LABS: Glucose, Whole Blood 327 mg/dL (60-115)
[2021-12-04] MEDS: Heparin Sodium,Porcine 5,000 UNIT/ML VIAL 5000 UNIT SUBCUT ×2 (13:55→20:58)
--- NOTE | 2021-12-04 17:33 | PC.NURSE ---
Pt states that he has no insurance.Case management is aware and has contacted financial department to assist pt. This was relayed to the patient.
[2021-12-04 18:14] LABS: Glucose, Whole Blood 282 mg/dL (60-115)
[2021-12-04] MEDS: Acetaminophen 325 MG TABLET 650 MG PO (18:28)
[2021-12-04 20:29] LABS: Glucose, Whole Blood 332 mg/dL (60-115)
[2021-12-04] MEDS: Atorvastatin Calcium 20 MG TABLET PO (20:56)
[2021-12-05] VITALS: BP 138/96; PULSE 85; RESP 18; TEMP 36.8; O2SAT 97
[2021-12-05] MEDS: 0.9 % Sodium Chloride 1,000 ML 100 ML IVCONT (01:21)
[2021-12-05 03:40] LABS: Glucose, Whole Blood 225 mg/dL (60-115)
[2021-12-05 03:43] VITALS: BP 152/106; PULSE 76; RESP 18; TEMP 36.4; O2SAT 99
[2021-12-05] MEDS: Heparin Sodium,Porcine 5,000 UNIT/ML VIAL 5000 UNIT SUBCUT (05:38)
[2021-12-05 06:44] LABS: Hematocrit 34.8 % (42.0-52.0); Hemoglobin 12.1 g/dl (14.0-18.0); Mean Corpuscular HGB Conc 34.8 g/dl (31.0-36.0); Mean Corpuscular Hemoglobin 29.1 pg (27.0-33.0); Mean Corpuscular Volume 83.7 fL (80.0-98.0); Mean Platelet Volume 10.3 fL (9.4-12.4); Platelet Count 198 X10*3/uL (160-400); Red Blood Count 4.16 X10*6/uL (4.60-5.80); Red Cell Distribution Width 11.4 % (11.0-16.0); White Blood Count 4.7 X10*3/uL (4.8-10.8)
[2021-12-05 07:11] LABS: Anion Gap 12 (12-20); Blood Urea Nitrogen 11 mg/dL (9-16); Calcium 8.3 mg/dL (8.4-10.2); Carbon Dioxide 24 mmol/L (22-29); Chloride 104 mmol/L (96-108); Estimated Glomerular Filt Rate > 60; Glucose Random 277 mg/dL (60-115); Sodium 136 mmol/L (135-145)
[2021-12-05 07:12] VITALS: BP 157/96; PULSE 75; RESP 18; TEMP 36.4; O2SAT 98
[2021-12-05 07:46] LABS: Glucose, Whole Blood 272 mg/dL (60-115)
[2021-12-05] MEDS: Insulin Lispro 100 UNIT/ML 3 ML VIAL SUBCUT ×4 (07:55→11:45)
[2021-12-05] MEDS: amLODIPine Besylate 5 MG TABLET PO (07:55)
[2021-12-05] MEDS: 0.9 % Sodium Chloride Flush 3 ML SYRINGE IVFLUSH (07:56)
[2021-12-05] MEDS: Insulin Glargine,Hum.rec.anlog 100 UNIT/ML 10 ML VIAL 20 UNIT SUBCUT (07:56)
[2021-12-05 08:00] VITALS: BP 149/96; PULSE 80; RESP 18; TEMP 36.2; O2SAT 99
[2021-12-05 11:13] VITALS: BP 151/99; PULSE 68; RESP 18; TEMP 36.9; O2SAT 98
--- NOTE | 2021-12-05 11:15 | P.DS_ITS ---
DS: Providers Provider Date of Service: 12/05/21 Date of admission: 12/04/21 05:11 Primary care physician: [facility] DS: Diagnosis Discharge Diagnosis (1) Diabetes mellitus, new onset: Status: Acute DS: Summary Hospital Course Hospital Course: from initial hpi: Chief Complaint: Dizzy ?41-year-old male with a past medical history of hypertension, hyperlipidemia presented to the hospital today with a chief complaint of not feeling well.? Patient reports that for the past few days he has been not feeling well, having intermittent episodes of dizziness, headaches assist with blurry visions.? Denies any numbness tingling or focal weakness.? Patient denies any chest pain or palpitations.? Mentions that he has been having increased thirst and also urinating more lately.? Denies any fevers and chills.? Denies any abdominal discomfort.? Patient mentions he has been feeling intermittently dizzy.? Denies any falls or trauma.? Review of all other systems is negative except mentioned above ER course: Per ER team patient on presentation noted of nonfocal examination; CT head showed no acute findings; on labs noted to have elevated blood glucose levels of 2068.? Patient was given 2 L of IV fluids.? Also noted to YESSENIA.? The wall of fingerstick glucose start improved.? Discussed with ICU-recommended admission to the medical floors.? Patient fingerstick glucose improved to 300s after 2 times IV push regular insulin.? Admitted to the hospital for further management hospital course: patient was admitted for new onset diabetes with hyperglycemia, he did not have DKA. He was started on basal bolus insulin with IV hydration and sugars became better controlled. This is likely type 2 diabetes, on discharge will attempt orals only with metformin and Januvia, he should be monitored closely for the near future. patient also noted to have acute kidney injury on admission. This resolved with IV hydration. Patient will restart lisinopril on discharge. For his hypertension use continue amlodipine, for his obesity ongoing weight loss is recommended. For steatohepatitis this was suspected to be due to LITTLE, continue management of comorbidities and weight loss is recommended. For his hyperlipidemia he was continued on statin. Patient is feeling better and will be discharged home. Time Spent with Patient Time attestation: Total time spent providing and/or coordinating discharge services: Discharge coordination time: Greater than 30 minutes Quality: Safe Use of Opioids Does Pt have an Active Cancer Diagnosis on the Problem List?: No Quality: Stroke Does the patient have a stroke diagnosis?: No Physical Exam Vital Signs: Vital Signs: Last Vital Signs Temp 97.2 F 12/05/21 08:00 Pulse 80 12/05/21 08:00 Resp 18 12/05/21 08:00 BP 149/96 H 12/05/21 08:00 Pulse Ox 99 12/05/21 08:00 O2 Del Method 12/05/21 08:00 BMI result Body Mass Index 30.7 General: AO X 3, no acute distress Resp: CTA bilateral, no accessory muscles used CVS: S1,S2,RRR GI: soft, non tender, non distended Neuro: motor grossly intact, alert Psych: appropriate affect, appropriate insight DS: Data Data Completed and Pending Labs on day of discharge: Laboratory Results - last 24 hr 12/04/21 12/04/21 12/04/21 12:12 18:08 20:24 WBC RBC Hgb Hct MCV MCH MCHC RDW Plt Count MPV Absolute Nucleated RBC Nucleated RBC % (auto) Sodium Potassium Chloride Carbon Dioxide Anion Gap BUN Creatinine Estim Creat Clear Calc Estimated GFR POC Glucose 327 H 282 H 332 H Random Glucose Calcium 12/05/21 12/05/21 12/05/21 03:34 06:20 06:20 WBC 4.7 L RBC 4.16 L Hgb 12.1 L Hct 34.8 L MCV 83.7 MCH 29.1 MCHC 34.8 RDW 11.4 Plt Count 198 MPV 10.3 Absolute Nucleated RBC 0.000 Nucleated RBC % (auto) 0.0 Sodium 136 Potassium 4.0 Chloride 104 Carbon Dioxide 24 Anion Gap 12 BUN 11 Creatinine 0.99 Estim Creat Clear Calc 101.0 Estimated GFR > 60 POC Glucose 225 H Random Glucose 277 H D Calcium 8.3 L D 12/05/21 07:18 WBC RBC Hgb Hct MCV MCH MCHC RDW Plt Count MPV Absolute Nucleated RBC Nucleated RBC % (auto) Sodium Potassium Chloride Carbon Dioxide Anion Gap BUN Creatinine Estim Creat Clear Calc Estimated GFR POC Glucose 272 H Random Glucose Calcium Preliminary micro results at discharge 12/04/21 01:11 Blood Culture - Preliminary Blood - Venous No growth after 24 hours. 12/04/21 01:11 Blood Culture - Preliminary Blood - Venous No growth after 24 hours. Discharge Plan Discharge Patient Disposition: Home, Self-Care Discharge Diagnosis: new DM, yessenia Referrals: [place],[facility] [Primary Care Provider] - 1 Week Discharge Medications: New metformin 1,000 mg tablet 1,000 mg PO BIDWMEAL Qty: 60 0RF Januvia 50 mg tablet 50 mg PO DAILY Qty: 30 0RF (DME) FreeStyle Lite Strips Strip See Rx Instructions .Route Qty: 100 0RF Rx Instructions: As directed (DME) blood-glucose meter [FreeStyle Lite Meter] Kit See Rx Instructions .Route Qty: 1 0RF Rx Instructions: As directed (DME) lancets [FreeStyle Lancets] 28 gauge misc See Rx Instructions .Route Qty: 100 0RF Rx Instructions: As directed alcohol swabs [Alcohol Pads] Pads, Medicated 1 pad topical DIRECTED Qty: 200 0RF Continued amlodipine 5 mg tablet 1 tab PO DAILY atorvastatin 20 mg tablet 20 mg PO BEDTIME lisinopril 20 mg tablet 20 mg PO BID Discharge Orders: Discharge Order (Routine); Ordered 12/05/21 Ordered By: Eduardo Frye Diet: Diabetic diet Activity on Discharge: As tolerated Stand Alone Forms: Patient Portal Discharge page Care Plan Goals: manage new DM Health Concerns: new dm Plan of Treatment: monitor sugars closely, start metformin and januvia, follow up soon with pcp Assessment: see above
[2021-12-05 11:31] LABS: Glucose, Whole Blood 311 mg/dL (60-115)
--- NOTE | 2021-12-05 11:45 | MHC.CM.PN ---
HOME - SELF CARE PLAN IS FOR PATIENT TO RECEIVE HIS DIABETIC SUPPLIES AT [facility]
[2021-12-05 11:53] VITALS: BMI 30.7
== END 2021-12-05 14:09 | disposition home or self-care (01) | DRG 638 ==
LOC: HO.ED 12-04 01:55 → HO.EDOVER 12-04 05:17 → HO.S3 12-04 16:09
PROVIDERS: Admitting Provider Hospitalist; Emergency Provider Emergency Medicine Emergency Medical Services; Visit Provider Internal Medicine
DX: E11.65 Type 2 diabetes mellitus with hyperglycemia (principal); N17.9 Acute kidney failure, unspecified; K75.81 Nonalcoholic steatohepatitis (NASH); E86.0 Dehydration; E66.9 Obesity, unspecified; Z68.30 Body mass index [BMI] 30.0-30.9, adult; G47.33 Obstructive sleep apnea (adult) (pediatric); E78.5 Hyperlipidemia, unspecified; I10 Essential (primary) hypertension; Z20.822 Contact with and (suspected) exposure to COVID-19; Z79.899 Other long term (current) drug therapy
CPT/HCPCS: 36415; 70450; 71045; 80048; 80053; 81001; 82009; 82803; 82947; 83036; 83690; 83930; 84484; 85025; 85027; 87040; 87635; 93005; 96365; 96366; 96367; 96375; 96376; 99285; J1200; J1885; J2270; J2765

== ENCOUNTER 2022-01-30 09:51 | Emergency (ER) | payer OTHER, SELFPAY ==
--- NOTE | ~2022-01-30 | XR_ITS ---
EXAMINATION: XR ANKLE, LEFT CLINICAL INFORMATION: Injury, pain COMPARISON: None TECHNIQUE: AP, lateral, and mortise views of the left ankle. FINDINGS: Osseous alignment is anatomic. No acute fracture is seen. There is chronic appearing degenerative change at the distal tibia and fibula. Soft tissue swelling is noted at the ankle and proximal foot. XR/XR ankle LT min 3V IMPRESSION: No acute findings identified. Soft tissue swelling of the ankle and proximal foot.
[2022-01-30 09:59] VITALS: BP 114/78; PULSE 81; RESP 16; TEMP 36.1; O2SAT 98; BMI 31.1
--- NOTE | 2022-01-30 13:12 | ED.LOWEXIN ---
HPI - Extremity Injury (Lower) General Chief Complaint: Extremity Injury, Lower Stated Complaint: L ankle inj 01/26/22 Time Seen by Provider: 01/30/22 12:23 Source: patient Mode of arrival: ambulatory Limitations: no limitations History of Present Illness HPI Narrative: 41 yo male here with left ankle pain after inversion injury Saturday. NO associated weakness, numbness, tingling. Pain worsened with weight bearing Related Data Home Medications Medication Instructions Recorded Confirmed atorvastatin 20 mg tablet 20 mg PO BEDTIME 06/16/20 12/04/21 lisinopril 20 mg tablet 20 mg PO BID 06/16/20 12/04/21 amlodipine 5 mg tablet 1 tab PO DAILY 12/04/21 12/04/21 Previous Rx's Medication Instructions Recorded alcohol swabs (Alcohol Pads) 1 pad topical DIRECTED #200 ea 12/05/21 blood sugar diagnostic (FreeStyle #100 ea 12/05/21 Lite Strips) blood-glucose meter (FreeStyle #1 ea 12/05/21 Lite Meter kit) lancets 28 gauge (FreeStyle #100 ea 12/05/21 Lancets) metformin 1,000 mg tablet 1,000 mg PO BIDWMEAL #60 tabs 12/05/21 sitagliptin 50 mg tablet (Januvia) 50 mg PO DAILY #30 tabs 12/05/21 ibuprofen 600 mg tablet 600 mg PO Q8H PRN pain #30 tabs 01/30/22 Allergies Allergy/AdvReac Type Severity Reaction Status Date / Time No Known Allergies Allergy Verified 12/03/21 22:35 [No Known Allergies*] Review of Systems Review of Systems: Yes all other systems are reviewed and are negative Constitutional: Constitutional: Reports no additional constitutional complaints, Denies body ache(s), Denies chills, Denies fever(s), Denies headache(s) and Denies weakness Eyes: Eyes: Reports no additional eye complaints and Denies change in vision ENT: Reports system reviewed and no additional complaints, except as documented, Denies dizziness, Denies headache(s), Denies nasal congestion, Denies nasal discharge and Denies neck pain Cardiovascular: Cardiovascular: Reports no additional cardiovascular complaints, Denies chest pain, Denies leg edema and Denies dyspnea Respiratory: Respiratory: Reports no additional respiratory complaints, Denies cough and Denies dyspnea Gastrointestinal: Gastrointestinal: Reports no additional gastrointestinal complaints, Denies abdominal pain, Denies diarrhea, Denies nausea and Denies vomiting Genitourinary: Genitourinary: Denies urinary incontinence Musculoskeletal: Musculoskeletal: Reports no additional musculoskeletal complaints, Denies back pain, Reports arthralgias, Reports joint swelling, Denies neck pain, Denies numbness and Denies tingling Integumentary/Breasts: Skin/Breast: Reports system reviewed and no additional complaints, except as docu and Denies rash Neurologic: Reports system reviewed and no additional complaints, except as documented, Denies Abnormal speech present, Denies dizziness, Denies headache(s), Denies numbness, Denies tingling and Denies weakness PMFSH Past Medical History Attestation statement: The following information was validated with the patient. Source: old records reviewed and nursing notes reviewed Medical History HTN (hypertension) Obesity (BMI 35.0-39.9 without comorbidity) FAUSTINO (obstructive sleep apnea) Panic attacks Snoring Social History Social History Household Members: None Housing: Apartment Do you presently have visiting nurse or other home services: No Patient Tobacco Use Status: Never used Tobacco Substance Use Type: Marijuana Advance Directives: No Advance Directives Information Provided: No Physical Exam Vital Signs: Vital Signs: Last Vital Signs Temp 97 F 01/30/22 09:59 Pulse 81 01/30/22 09:59 Resp 16 01/30/22 09:59 BP 114/78 01/30/22 09:59 Pulse Ox 98 01/30/22 09:59 BMI result Body Mass Index 31.1 Const: General: cooperative, healthy appearing, comfortable and no acute distress Orientation/consciousness: patient oriented x3 Limitations: no limitations HEENT: Head: Yes normal to inspection Ears: hearing grossly normal bilaterally General nose exam: Normal external nose present Face and sinus: Yes normal facial exam Mouth: Normal oral and palatal mucosa present Throat: Yes posterior oropharynx normal Eyes: General: appearance normal, both eyes and all related structures Pupils: Equal, round and reactive pupils present Neck: Neck: Yes normal visual inspection Chest: Chest palpation & inspection: normal inspection of the chest Resp: Effort & Inspection: normal respiratory effort Auscultation: clear to auscultation bilaterally Cardio: Rate: regular rate Rhythm: regular rhythm Peripheral pulses: Peripheral pulses 2+ throughout GI: Inspection: Yes normal to inspection Palpation (GI): Soft to palpation and nontender Auscultation: normal bowel sounds Back/Spine/Pelvis: Thoracic/Lumbar Spine: thoracic and lumbar spine normal to inspection Skin: General skin exam: no rashes or lesions noted Neuro: General: patient oriented x3, no focal motor deficits and normal sensation to monofilament Cranial nerves: Yes Equal, round and reactive pupils present Cognition (Neuro): normal cognition Speech: No Abnormal speech present Gait exam (Neuro): Normal gait present Motor exam (neuro): 5/5 motor strength present throughout Extrem: Other: Swelling, ecchymosis, tenderness over medial ankle left side. FROM. NV intact distally. No calf pain or foot pain. Negative oneal sign General: Yes normal to inspection Course Course Course Narrative: X-rays show no bony abnormality. Likely sprain. Patient to be given aircast and crutches. Reviewed riCe. Reviewed worrisome signs.symptoms with patient and when to seek additional care. Comfortable with plan for discharge home. MDM - Extremity Injury (Lower) MDM Narrative Medical decision making narrative: 41 yo male here with left ankle pain after inversion injury Saturday. Will check x-rays Differential Diagnosis Differential diagnosis: Likely ankle sprain and strain Medical Records Attestation: I reviewed the patient's medical records. Lab Data Attestation: I reviewed the patient's lab results. Imaging Data ankle xray: Attestation: I personally reviewed and interpreted this imaging study as follows: Radiologist's impression: [place] [id number] XRay Report Signed Patient: Asif Mann MR#: [id number] : 1980 Acct:[id number] Age/Sex: 41 / M ADM Date: 01/30/22 Loc: HO.ED Attending Dr: Ordering Physician: Generic ED Physician Date of Service: 01/30/22 Procedure(s): XR ankle LT min 3V Accession Number(s): [id number] cc: Generic ED Physician~ EXAMINATION: XR ANKLE, LEFT CLINICAL INFORMATION: Injury, pain? COMPARISON: None? TECHNIQUE: AP, lateral, and mortise views of the left ankle. FINDINGS: Osseous alignment is anatomic. No acute fracture is seen. There is chronic appearing degenerative change at the distal tibia and fibula. Soft tissue swelling is noted at the ankle and proximal foot.? XR/XR ankle LT min 3V IMPRESSION: No acute findings identified. Soft tissue swelling of the ankle and proximal foot. Procedures Procedure Narrative Procedure Narrative: air cast, crutches Discharge Plan Discharge Clinical Impression: Ankle sprain and strain Patient Disposition: Home, Self-Care Instructions: Ankle Sprain (ED) Additional Instructions: Rest, ice, elevation Motrin for pain as needed Use aircast and crutches for ambulation Prescriptions: New ibuprofen 600 mg tablet 600 mg PO Q8H PRN (Reason: pain) Qty: 30 0RF No Action amlodipine 5 mg tablet 1 tab PO DAILY metformin 1,000 mg tablet 1,000 mg PO BIDWMEAL Qty: 60 0RF Januvia 50 mg tablet 50 mg PO DAILY Qty: 30 0RF (DME) FreeStyle Lite Strips Strip See Rx Instructions .Route Qty: 100 0RF Rx Instructions: As directed (DME) blood-glucose meter [FreeStyle Lite Meter] Kit See Rx Instructions .Route Qty: 1 0RF Rx Instructions: As directed (DME) lancets [FreeStyle Lancets] 28 gauge misc See Rx Instructions .Route Qty: 100 0RF Rx Instructions: As directed alcohol swabs [Alcohol Pads] Pads, Medicated 1 pad topical DIRECTED Qty: 200 0RF atorvastatin 20 mg tablet 20 mg PO BEDTIME lisinopril 20 mg tablet 20 mg PO BID Referrals: Physician,Unknown J [Primary Care Provider] - Stand Alone Forms: Work/School Release
== END 2022-01-30 14:14 | disposition home or self-care (01) ==
PROVIDERS: Emergency Provider Emergency Medicine
DX: S93.402A Sprain of unspecified ligament of left ankle, initial encounter (principal); X50.1XXA Overexertion from prolonged static or awkward postures, initial encounter; Y93.9 Activity, unspecified; Y92.9 Unspecified place or not applicable; Y99.9 Unspecified external cause status; Z79.899 Other long term (current) drug therapy
CPT/HCPCS: 73610; 99283; 99284

== ENCOUNTER 2022-08-23 21:47 | Emergency (ER) | payer OTHER, SELFPAY ==
[2022-08-23 21:51] VITALS: BP 140/95; PULSE 81; RESP 18; TEMP 36.8; O2SAT 97; BMI 32.3
[2022-08-23 22:11] LABS: MANUAL DIFF FLAG NO
[2022-08-23 22:13] LABS: Basophils Percent Auto 0.5 % (0-2); Eosinophils Absolute Auto 0.3 X10*3/uL (0.0-0.4); Eosinophils Percent Auto 5.5 % (0-4); Hematocrit 36.6 % (42.0-52.0); Hemoglobin 12.6 g/dl (14.0-18.0); Lymphocytes Absolute Auto 2.3 X10*3/uL (1.2-4.9); Lymphocytes Percent Auto 40.1 % (20-40); Mean Corpuscular HGB Conc 34.4 g/dl (31.0-36.0); Mean Corpuscular Volume 87.1 fL (80.0-98.0); Mean Platelet Volume 9.1 fL (9.4-12.4); Monocytes Absolute Auto 0.5 X10*3/uL (0.1-1.2); Neutrophils Absolute Auto 2.7 x10*3/uL (2.0-8.3); Neutrophils Percent Auto 45.9 % (45-73); Platelet Count 242 X10*3/uL (160-400); Red Cell Distribution Width 11.8 % (11.0-16.0); White Blood Count 5.8 X10*3/uL (4.8-10.8)
[2022-08-23 22:34] LABS: Alanine Aminotransferase 25 U/L (0-40); Albumin Level 4.4 g/dL (3.5-5.0); Alkaline Phosphatase 61 U/L (39-117); Anion Gap 12 (12-20); Aspartate Amino Transferase 28 U/L (5-37); Bilirubin Total 0.4 mg/dL (0.0-1.0); Blood Urea Nitrogen 23 mg/dL (9-16); Carbon Dioxide 26 mmol/L (22-29); Chloride 107 mmol/L (96-108); Creatinine Clr Calc Pharmacy 100.4; Estimated Glomerular Filt Rate > 60; Glucose Random 105 mg/dL (60-115); Potassium 4.1 mmol/L (3.3-5.1); Sodium 141 mmol/L (135-145); Total Protein 7.2 g/dL (6.5-8.0)
--- NOTE | 2022-08-24 00:23 | ED_ITS ---
HPI - Skin/Abscess/Foreign Bdy General Chief complaint: Skin/Abscess/Foreign Body Stated complaint: Cysts on leg Time Seen by Provider: 08/23/22 23:38 Source: patient Mode of arrival: ambulatory Limitations: no limitations History of Present Illness HPI narrative: 42-year-old male history hypertension, diabetes presenting for evaluation of worsening ganglion cyst to right ferro. According to patient he was seen by specialist at of [facility] in [place] for this Saturday, 2 days ago where he had this drained with fine-needle aspiration, he reports initially cyst was small however after aspiration it has tripled in size and has become very uncomfortable. He reports pain and pressure overlying cyst. He does not have a scheduled follow-up appointment with the specialist. They did not give him anything for pain and was not discharged with any compression overlying the cyst. Denies fevers, chills, numbness, tingling. Related Data Home Medications Medication Instructions Recorded Confirmed atorvastatin 20 mg tablet 20 mg PO BEDTIME 06/16/20 12/04/21 lisinopril 20 mg tablet 20 mg PO BID 06/16/20 12/04/21 amlodipine 5 mg tablet 1 tab PO DAILY 12/04/21 12/04/21 Previous Rx's Medication Instructions Recorded alcohol swabs (Alcohol Pads) 1 pad topical DIRECTED #200 ea 12/05/21 blood sugar diagnostic (FreeStyle #100 ea 12/05/21 Lite Strips) blood-glucose meter (FreeStyle #1 ea 12/05/21 Lite Meter kit) lancets 28 gauge (FreeStyle #100 ea 12/05/21 Lancets) metformin 1,000 mg tablet 1,000 mg PO BIDWMEAL #60 tabs 12/05/21 sitagliptin phosphate 50 mg tablet 50 mg PO DAILY #30 tabs 12/05/21 (Januvia) ibuprofen 600 mg tablet 600 mg PO Q8H PRN pain #30 tabs 01/30/22 ketorolac 10 mg tablet 10 mg PO TID PRN pain 5 days #15 08/24/22 tabs Allergies Allergy/AdvReac Type Severity Reaction Status Date / Time No Known Allergies Allergy Verified 08/23/22 21:50 [No Known Allergies*] Review of Systems Review of Systems: Constitutional : No Fever, No Chills, Cardiovascular : No Chest Pain, No SOB Respiratory : No Dyspnea Gastrointestinal : No abdominal pain Musculoskeletal : No Joint Swelling Skin : No rash, positive cyst Neuro : No Weakness, No Numbness Psych : No SI/HI Yes all other systems are reviewed and are negative [facility] Past Medical History Attestation statement: The following information was validated with the patient. Source: old records reviewed and nursing notes reviewed Medical History HTN (hypertension) Obesity (BMI 35.0-39.9 without comorbidity) FAUSTINO (obstructive sleep apnea) Panic attacks Snoring Social History Social History Household Members: None Housing: Apartment Do you presently have visiting nurse or other home services: No Patient Tobacco Use Status: Never used Tobacco Substance Use Type: Marijuana Advance Directives: No Advance Directives Information Provided: No Physical Exam Vital Signs: Vital Signs: Last Vital Signs Temp 98.0 F 08/24/22 00:39 Pulse 72 08/24/22 00:39 Resp 15 08/24/22 00:39 BP 138/91 H 08/24/22 00:39 Pulse Ox 99 08/24/22 00:39 O2 Del Method Room Air 08/24/22 00:39 BMI result Body Mass Index 32.3 Vital signs stable Appearance: Alert.? Oriented X3.? No acute distress.? Head: Normocephalic, atraumatic, no step-offs or deformities Eyes: Pupils equal, round and reactive to light.? CVS: Normal heart rate and rhythm.? Pulses normal.? Respiratory: No respiratory distress.? Breath sounds normal.? Abdomen: Soft and nontender.? Skin: Skin warm and dry.? Normal skin color.? Normal skin turgor.? Extremities: No lower extremity edema.? No calf ttp, negative Phoebe. 5/5 strength to bilateral upper and lower extremities fair is a 4 cm x 4 cm cyst her right anterior ferro about 3 cm from patella on the medial aspect. Overlying fluctuance. No overlying erythema, warmth. No noted streaking. 2+ dorsalis pedis anterior tibialis pulses equal bilateral. Patient ambulatory without difficulty Back: No midline tenderness, no C-spine tenderness, full range of motion, no CVA tenderness bilaterally Neuro: Oriented X 3.? No motor deficit.? No sensory deficit. CN 2-12 intact Course Reevaluation(s) Reevaluation #1: Attending evaluated patient and tells me to not do a fine-needle aspiration in case this is a periosteal cyst, he should follow-up with a specialist or General surgery to evaluate this. Will give him Toradol for pain and Eliecer wrap for compression. We explained this to patient. Patient verbalizes understanding. Educated patient on diagnosis and treatment plan, answered all question, patient verbalizes understanding. At this time patient will be discharged home, advised to return with new or worsening symptoms. Educated on worrisome signs and symptoms and when to return. At this time I feel comfortable discharge home. Time: 00:31 Medications Administered Discontinued Medications Generic Name Dose Route Start Last Admin Trade Name Frejay PRN Reason Stop Dose Admin Ketorolac Tromethamine 30 mg 08/24/22 00:24 08/24/22 00:32 Ketorolac Tromethamine 30 Mg/Ml Vial IM 08/24/22 00:25 30 mg ONCE ONE Administration Medical Decision Making Medical Decision Making [facility] Narrative: 0015 42-year-old male recently seen by specialist 2 days ago and had a fine-needle aspiration of ganglion cyst on right ferro presents with worsening ganglion cyst to the right ferro despite FNA. On exam No lower extremity edema.? No calf ttp, negative Phoebe. 5/5 strength to bilateral upper and lower extremities fair is a 4 cm x 4 cm cyst her right anterior ferro about 3 cm from patella on the medial aspect. Overlying fluctuance. No overlying erythema, warmth. No noted streaking. 2+ dorsalis pedis anterior tibialis pulses equal bilateral. Patient ambulatory without difficulty This is likely a worsening cyst ( ganglion vs periosteal) however there is no overlying cellulitis, erythema, warmth. No signs of gangrene, necrotizing infection, erysipelas. No signs of septic joint. No streaking. This is likely reaccumulation status post fine-needle aspiration. Plan will apply a pressure dressing to area. Patient reports significant pain will give Toradol for pain. I did have my attending doctors 80 Differential Diagnosis Differential Diagnoses: The differential diagnosis associated with the presentation includes This is likely a worsening cyst ( ganglion vs periosteal) however there is no overlying cellulitis, erythema, warmth. No signs of gangrene, necrotizing infection, erysipelas. No signs of septic joint. No streaking. This is likely reaccumulation status post fine-needle aspiration. Admission/Observation Consideration of admission/observation: Escalation of care including admission/o bservation considered Consult Healthcare Provider Management of the patient was discussed with: Wedger Machine (My attending) Lab Data 08/23/22 22:07 08/23/22 22:07 Labs: Lab Results 08/23/22 08/23/22 Range/Units 22:07 22:07 WBC 5.8 (4.8-10.8) X10*3/uL RBC 4.20 L (4.60-5.80) X10*6/uL Hgb 12.6 L (14.0-18.0) g/dl Hct 36.6 L (42.0-52.0) % MCV 87.1 (80.0-98.0) fL MCH 30.0 (27.0-33.0) pg MCHC 34.4 (31.0-36.0) g/dl RDW 11.8 (11.0-16.0) % Plt Count 242 (160-400) X10*3/uL MPV 9.1 L (9.4-12.4) fL Immature Gran % (Auto) 0.0 (0.0-0.4) % Neut % (Auto) 45.9 (45-73) % Lymph % (Auto) 40.1 H (20-40) % [place] % (Auto) 8.0 (2-11) % Eos % (Auto) 5.5 H (0-4) % Baso % (Auto) 0.5 (0-2) % Lymph # (Auto) 2.3 (1.2-4.9) X10*3/uL [place] # (Auto) 0.5 (0.1-1.2) X10*3/uL Eos # (Auto) 0.3 (0.0-0.4) X10*3/uL Baso # (Auto) 0.0 (0.0-0.2) X10*3/uL Abs Immat Gran (auto) 0.00 (0.00-0.03) X10*3/uL Absolute Neuts (auto) 2.7 (2.0-8.3) x10*3/uL Absolute Nucleated RBC 0.000 (0.0-0.012) X10*3/uL Nucleated RBC % (auto) 0.0 (0.0-0.2) /100WBC Sodium 141 (135-145) mmol/L Potassium 4.1 (3.3-5.1) mmol/L Chloride 107 (96-108) mmol/L Carbon Dioxide 26 (22-29) mmol/L Anion Gap 12 (12-20) BUN 23 H (9-16) mg/dL Creatinine 1.01 (0.5-1.4) mg/dL Estim Creat Clear Calc 100.4 Estimated GFR > 60 Random Glucose 105 (60-115) mg/dL Calcium 9.0 D (8.4-10.2) mg/dL Total Bilirubin 0.4 (0.0-1.0) mg/dL AST 28 (5-37) U/L ALT 25 (0-40) U/L Alkaline Phosphatase 61 (39-117) U/L Total Protein 7.2 (6.5-8.0) g/dL Albumin 4.4 (3.5-5.0) g/dL Prescription Management I considered prescription management with: Pain Medication Core Measures AMI core measures followed: Yes Measure exclusions: not indicated Critical Care Time Critical Care Time Critical Care Time: No Discharge Plan Discharge Clinical Impression: Cyst of soft tissue Patient Disposition: Home, Self-Care Additional Instructions: Take your medications as prescribed. If you were prescribed antibiotics today, it is important that you take your medication to their entirety, do not skip any doses, do not finish them early. Follow-up with your primary care provider this week. Follow-up with general surgery information below Return to the emergency department with new or worsening symptoms. Such as fevers, chills, chest pain, shortness of breath, nausea, vomiting, dizziness, headache, vision changes, lethargy, numbness, tingling In case of emergency call 911 Toradol has been sent to your pharmacy, you tolerated this well in the department. Please take this as prescribed do not take this with ibuprofen, or other NSAIDs, do not mix this with alcohol. Side effects of this medication including increased risk for bleeding and possible kidney injury. Apply pressure to affected area with Eliecer wrap Prescriptions: New ketorolac 10 mg tablet 10 mg PO TID PRN (Reason: pain) 5 Days Qty: 15 0RF No Action amlodipine 5 mg tablet 1 tab PO DAILY metformin 1,000 mg tablet 1,000 mg PO BIDWMEAL Qty: 60 0RF Januvia 50 mg tablet 50 mg PO DAILY Qty: 30 0RF (DME) FreeStyle Lite Strips Strip See Rx Instructions .Route Qty: 100 0RF Rx Instructions: As directed (DME) blood-glucose meter [FreeStyle Lite Meter] Kit See Rx Instructions .Route Qty: 1 0RF Rx Instructions: As directed (DME) lancets [FreeStyle Lancets] 28 gauge misc See Rx Instructions .Route Qty: 100 0RF Rx Instructions: As directed alcohol swabs [Alcohol Pads] Pads, Medicated 1 pad topical DIRECTED Qty: 200 0RF ibuprofen 600 mg tablet 600 mg PO Q8H PRN (Reason: pain) Qty: 30 0RF atorvastatin 20 mg tablet 20 mg PO BEDTIME lisinopril 20 mg tablet 20 mg PO BID Referrals: [facility] General Surgeons [Provider Group] - 1 day [facility] Orthopedic Surgeons [Provider Group] - 2 weeks Massiel Mcfarlane MD [Primary Care Provider] - 2 days Stand Alone Forms: Work/School Release Interventions: ED Discharge Assessment Last Done: 08/24/22 00:39 Discharge Date/Time: 08/24/22 00:43
[2022-08-24] MEDS: Ketorolac Tromethamine 30 MG/ML VIAL IM (00:32)
--- NOTE | 2022-08-24 00:33 | PC.NURSE ---
pito wrap placed around cyst, no drainage at this time. Toradol administered per MAR
[2022-08-24 00:39] VITALS: BP 138/91; PULSE 72; RESP 15; TEMP 36.7; O2SAT 99
== END 2022-08-24 00:43 | disposition home or self-care (01) ==
PROVIDERS: Emergency Provider Internal Medicine; PCP Internal Medicine
DX: L72.9 Follicular cyst of the skin and subcutaneous tissue, unspecified (principal); Z79.899 Other long term (current) drug therapy
CPT/HCPCS: 36415; 80053; 85025; 96372; 99284; J1885

== ENCOUNTER 2023-01-23 19:22 | Emergency (ER) | payer OTHER, SELFPAY ==
--- NOTE | ~2023-01-23 | XR_ITS ---
EXAMINATION: XR ANKLE, RIGHT CLINICAL INFORMATION: Lateral right ankle pain. COMPARISON: None available. TECHNIQUE: AP, lateral, and mortise views of the right ankle. FINDINGS: No acute fracture or dislocation. The ankle mortise is maintained. Mild degenerative spurring at the distal tibiofibular syndesmosis. No tibiotalar joint space narrowing or marginal osteophytes. No osseous erosion. No abnormal soft tissue calcification. Mild lateral soft tissue swelling. XR/XR ankle RT 2V IMPRESSION: Mild lateral soft tissue swelling without acute osseous abnormality.
[2023-01-23 20:11] VITALS: BP 140/90; PULSE 81; RESP 16; TEMP 37.3; O2SAT 97; BMI 33.0
--- NOTE | 2023-01-23 20:13 | ED_ITS ---
HPI - General Adult General Chief complaint: Wound/Laceration Stated complaint: right ankle swollen Time Seen by Provider: 01/23/23 21:03 Source: patient Mode of arrival: ambulatory Limitations: no limitations History of Present Illness HPI narrative: Patient is a 42-year-old male presents emergency department for evaluation of right ankle pain. He reports that 5 days ago he struck his right lateral ankle against a he nail at work reporting that it punctured into his ankle and able to be removed. He has been having increasing pain and redness to this region since the initial injury. Denies numbness, tingling, fevers, chills, purulent drainage. Reports that his tetanus is up-to-date within the last 5 years. Related Data Home Medications Medication Instructions Recorded Confirmed atorvastatin 20 mg tablet 20 mg PO BEDTIME 06/16/20 12/04/21 lisinopril 20 mg tablet 20 mg PO BID 06/16/20 12/04/21 amlodipine 5 mg tablet 1 tab PO DAILY 12/04/21 12/04/21 Previous Rx's Medication Instructions Recorded alcohol swabs (Alcohol Pads) 1 pad topical DIRECTED #200 ea 12/05/21 blood sugar diagnostic (FreeStyle #100 ea 12/05/21 Lite Strips) blood-glucose meter (FreeStyle #1 ea 12/05/21 Lite Meter kit) lancets 28 gauge (FreeStyle #100 ea 12/05/21 Lancets) metformin 1,000 mg tablet 1,000 mg PO BIDWMEAL #60 tabs 12/05/21 sitagliptin phosphate 50 mg tablet 50 mg PO DAILY #30 tabs 12/05/21 (Januvia) ibuprofen 600 mg tablet 600 mg PO Q8H PRN pain #30 tabs 01/30/22 ketorolac 10 mg tablet 10 mg PO TID PRN pain 5 days #15 08/24/22 tabs cephalexin 500 mg capsule 500 mg PO QID #27 caps 01/23/23 doxycycline hyclate 100 mg capsule 100 mg PO BID #13 caps 01/23/23 Allergies Allergy/AdvReac Type Severity Reaction Status Date / Time No Known Allergies Allergy Verified 01/23/23 20:15 [No Known Allergies*] Review of Systems 2 Review of Systems: Yes all other systems are reviewed and are negative PMFSH Past Medical History Attestation statement: The following information was validated with the patient. Source: old records reviewed Medical History Snoring FAUSTINO (obstructive sleep apnea) Obesity (BMI 35.0-39.9 without comorbidity) Panic attacks HTN (hypertension) Social History Social History Household Members: None Housing: Apartment Do you presently have visiting nurse or other home services: No Patient Tobacco Use Status: Never used Tobacco Substance Use Type: Marijuana Advance Directives: No Advance Directives Information Provided: Yes Physical Exam ED Vital Signs: Vital Signs - 24 hr 01/23/23 20:11 Temperature 99.1 F Pulse Rate 81 Respiratory Rate 16 Blood Pressure 140/90 H Pulse Oximetry 97 Oxygen Delivery Method Room Air BMI result Body Mass Index 33.0 Appearance: Alert.?Oriented to person, place and time. No acute distress.?Normal affect. Neck: Normal inspection.? Neck supple.?? CVS: Heart sounds normal. Normal heart rate and rhythm.? Pulses normal.?? Respiratory: No respiratory distress.? Lung sounds clear to auscultation bilaterally?? Abdomen: Soft and non-tender. Normoactive bowel sounds. Skin: Skin warm and dry.? Normal skin color.? Extremities: Localized swelling to the right lateral malleolus with mild erythema, no warmth, full AROM to the ankle. 2+ DP/PT pulse bilaterally. No calf tenderness upon palpation. Neuro: Moves all extremities spontaneously. Sensation intact bilaterally. CN II- XII intact. No focal neuro deficits. Ambulates with normal steady gait. Course Course Course Narrative: RME- 42-year-old male presents for evaluation of right lateral ankle pain and swelling. Patient reports he got stop by a nail 5 days ago at work. He reports he is a diabetic and there is redness denies fevers. Plans for labs including blood cultures. He is afebrile in triage. He is able to flex and extend the right ankle. Less likely to be septic joint and more likely to be more superficial cellulitis Medical Decision Making Medical Decision Making MDM Narrative: Patient is a 42-year-old male presents emergency department for evaluation of pain to the right lateral malleolus. He does have mild erythema and swelling this most consistent with a localized cellulitis. No significant warmth, full AROM is intact in the extremities neurovascularly intact distally. Low suspicion for septic arthritis. No appreciated abscess. XR imaging reveals no evidence of osseous abnormality or acute fracture. Discussed plan of care for discharge home, received initial dose of doxycycline and Keflex while in the emergency department, sent prescriptions to pharmacy. Advised rest, ice, compression elevation, and outpatient follow-up with primary care provider. All questions answered. Stable for discharge. Differential Diagnosis Differential Diagnoses: The differential diagnosis associated with the presentation includes (As noted above) Lab Data MDM Lab Attestation statement: I reviewed the patient's lab results. CBC reveals no evidence of leukocytosis, a mild normocytic anemia which is not meet any transfusion criteria. Mildly elevated CRP at 0.72. CMP is overall unremarkable. 01/23/23 20:42 01/23/23 20:42 Labs: Lab Results 01/23/23 Range/Units 20:42 WBC 5.4 (4.8-10.8) X10*3/uL RBC 3.91 L (4.60-5.80) X10*6/uL Hgb 11.7 L (14.0-18.0) g/dl Hct 34.1 L (42.0-52.0) % MCV 87.2 (80.0-98.0) fL MCH 29.9 (27.0-33.0) pg MCHC 34.3 (31.0-36.0) g/dl RDW 11.9 (11.0-16.0) % Plt Count 225 (160-400) X10*3/uL MPV 9.2 L (9.4-12.4) fL Immature Gran % (Auto) 0.2 (0.0-0.4) % Neut % (Auto) 41.9 L (45-73) % Lymph % (Auto) 41.4 H (20-40) % [place] % (Auto) 9.1 (2-11) % Eos % (Auto) 7.0 H (0-4) % Baso % (Auto) 0.4 (0-2) % Lymph # (Auto) 2.2 (1.2-4.9) X10*3/uL [place] # (Auto) 0.5 (0.1-1.2) X10*3/uL Eos # (Auto) 0.4 (0.0-0.4) X10*3/uL Baso # (Auto) 0.0 (0.0-0.2) X10*3/uL Abs Immat Gran (auto) 0.01 (0.00-0.03) X10*3/uL Absolute Neuts (auto) 2.3 (2.0-8.3) x10*3/uL Absolute Nucleated RBC 0.000 (0.0-0.012) X10*3/uL Nucleated RBC % (auto) 0.0 (0.0-0.2) /100WBC Sodium 142 (135-145) mmol/L Potassium 3.6 (3.3-5.1) mmol/L Chloride 107 (96-108) mmol/L Carbon Dioxide 27 (22-29) mmol/L Anion Gap 12 (12-20) BUN 18 H (9-16) mg/dL Creatinine 1.21 (0.5-1.4) mg/dL Estim Creat Clear Calc 84.7 Estimated GFR > 60 Random Glucose 86 (60-115) mg/dL Lactic Acid 0.9 (0.5-2.0) mmol/L Calcium 9.3 (8.4-10.2) mg/dL C-Reactive Protein 0.72 H (< or = 0.50) mg/dL Independent Interpretation I performed an independent interpretation of an: Plain X-Ray Radiology Impression Discussion of test interpretation with radiology: I have reviewed the radiologist's reading. Radiologist Impression: XR/XR ankle RT 2V IMPRESSION: Mild lateral soft tissue swelling without acute osseous abnormality. Independent Historian Clinical information obtained from an independent historian. History obtained from or confirmed by: Spouse (Present at bedside a confirms history) External Record Review External record reviewed: Office record Prescription Management I considered prescription management with: Antibiotic Discharge Plan Discharge Clinical Impression: Cellulitis of right ankle Patient Disposition: Home, Self-Care Instructions: Cellulitis (ED) Prescriptions: New doxycycline hyclate 100 mg capsule 100 mg PO BID Qty: 13 0RF cephalexin 500 mg capsule 500 mg PO QID Qty: 27 0RF No Action amlodipine 5 mg tablet 1 tab PO DAILY metformin 1,000 mg tablet 1,000 mg PO BIDWMEAL Qty: 60 0RF Januvia 50 mg tablet 50 mg PO DAILY Qty: 30 0RF (DME) FreeStyle Lite Strips Strip See Rx Instructions .Route Qty: 100 0RF Rx Instructions: As directed (DME) blood-glucose meter [FreeStyle Lite Meter] Kit See Rx Instructions .Route Qty: 1 0RF Rx Instructions: As directed (DME) lancets [FreeStyle Lancets] 28 gauge misc See Rx Instructions .Route Qty: 100 0RF Rx Instructions: As directed alcohol swabs [Alcohol Pads] Pads, Medicated 1 pad topical DIRECTED Qty: 200 0RF ibuprofen 600 mg tablet 600 mg PO Q8H PRN (Reason: pain) Qty: 30 0RF ketorolac 10 mg tablet 10 mg PO TID PRN (Reason: pain) 5 Days Qty: 15 0RF atorvastatin 20 mg tablet 20 mg PO BEDTIME lisinopril 20 mg tablet 20 mg PO BID Referrals: Masseil Mcfarlane MD [Primary Care Provider] -
[2023-01-23 20:47] LABS: MANUAL DIFF FLAG NO
[2023-01-23 20:55] LABS: Basophils Percent Auto 0.4 % (0-2); Eosinophils Absolute Auto 0.4 X10*3/uL (0.0-0.4); Hematocrit 34.1 % (42.0-52.0); Hemoglobin 11.7 g/dl (14.0-18.0); Imm Gran Abs Auto 0.01 X10*3/uL (0.00-0.03); Imm Gran Pct Auto 0.2 % (0.0-0.4); Lymphocytes Absolute Auto 2.2 X10*3/uL (1.2-4.9); Lymphocytes Percent Auto 41.4 % (20-40); Mean Corpuscular HGB Conc 34.3 g/dl (31.0-36.0); Mean Corpuscular Hemoglobin 29.9 pg (27.0-33.0); Mean Corpuscular Volume 87.2 fL (80.0-98.0); Mean Platelet Volume 9.2 fL (9.4-12.4); Monocytes Absolute Auto 0.5 X10*3/uL (0.1-1.2); Monocytes Percent Auto 9.1 % (2-11); Neutrophils Absolute Auto 2.3 x10*3/uL (2.0-8.3); Neutrophils Percent Auto 41.9 % (45-73); Platelet Count 225 X10*3/uL (160-400); Red Blood Count 3.91 X10*6/uL (4.60-5.80); Red Cell Distribution Width 11.9 % (11.0-16.0); White Blood Count 5.4 X10*3/uL (4.8-10.8)
[2023-01-23 21:00] LABS: Lactic Acid 0.9 mmol/L (0.5-2.0)
[2023-01-23 21:03] LABS: Anion Gap 12 (12-20); Blood Urea Nitrogen 18 mg/dL (9-16); C Reactive Protein 0.72 mg/dL (< or = 0.50); Calcium 9.3 mg/dL (8.4-10.2); Carbon Dioxide 27 mmol/L (22-29); Chloride 107 mmol/L (96-108); Creatinine Clr Calc Pharmacy 84.7; Estimated Glomerular Filt Rate > 60; Glucose Random 86 mg/dL (60-115); Potassium 3.6 mmol/L (3.3-5.1); Sodium 142 mmol/L (135-145)
[2023-01-23] MEDS: Doxycycline Monohydrate 100 MG CAPSULE PO (22:04)
[2023-01-23] MEDS: cephALEXin 500 MG CAPSULE PO (22:05)
[2023-01-23 22:14] LABS: Erythrocyte Sedimentation Rate 25 MM/HR (0-15)
== END 2023-01-23 22:22 | disposition home or self-care (01) ==
PROVIDERS: Physician Assistant; Emergency Provider Student in an Organized Health Care Education/Training Program; PCP Internal Medicine
DX: L03.115 Cellulitis of right lower limb (principal); Z79.899 Other long term (current) drug therapy
CPT/HCPCS: 36415; 73600; 80048; 83605; 85025; 85652; 86140; 87040; 99282; 99283

== ENCOUNTER 2023-04-25 16:11 | Emergency (ER) | payer OTHER, SELFPAY ==
--- NOTE | ~2023-04-25 | CT_ITS ---
EXAM: CT HEAD WITHOUT CONTRAST CT CERVICAL SPINE INDICATION: Reason for Exam fall with head strike TECHNIQUE: A noncontrast CT scan was performed from the skull base to the vertex. A noncontrast CT scan of the cervical spine was performed from the base of the skull through T1 at 2.5 mm and 0.625 mm collimation. Coronal and sagittal reformats were obtained at the acquisition workstation. This CT examination was performed using dose optimization techniques as appropriate, variously including the following: * Automated exposure control * Adjustment of mA and/or kV according to patient size (this includes techniques or standardized protocols for targeted exams where dose is matched to indication/reason for exam; i.e. extremities or head) * Use of iterative reconstruction technique Dose length product is 1510 mGy-cm. COMPARISON: Correlation MRI brain 12/31/2019, CT 06/06/2019 FINDINGS: There is no evidence of acute intracranial hemorrhage or territorial infarction. No abnormal mass effect or midline shift is seen. Walsh to white matter differentiation is well preserved. No extra-axial fluid collections are identified. The ventricles are normal in size. No abnormal attenuation in the brain parenchyma. No acute calvarial fracture.. Paranasal sinuses and mastoid air cells are well-aerated. Cervical Spine: The atlantooccipital and atlantoaxial articulations are maintained. Straightening of the normal cervical lordosis. Otherwise, there is anatomic alignment of the vertebral bodies and posterior elements. No evidence of acute fracture. Vertebral body heights are maintained. Mild disc degeneration at C5-C6, with anterior osteophytes and a chronic ossification anteriorly.. The central canal is maintained. No significant prevertebral soft tissue swelling. No suspicious thyroid findings. Lung apices are clear. CT/CT cervical spine wo IV con IMPRESSION: No CT evidence of acute intracranial hemorrhage or edematous territorial infarction. No CT evidence of acute cervical spine fracture or malalignment.
--- NOTE | ~2023-04-25 | XR_ITS ---
EXAMINATION: 1. Right femur. 2. Right knee. CLINICAL INFORMATION: Pain. Hematoma. Fall. COMPARISON: None. TECHNIQUE: 1. Right femur. 2 views 2. Right knee. 4 views FINDINGS: 1. Right femur. No fracture. No dislocation of hip. No focal bone lesion. No soft tissue abnormality. 2. Right knee. No fracture. No dislocation. No joint effusion. There is joint narrowing of the medial femoral tibial joint. There are marginal bone spurs of femur and tibia at both the medial and lateral femoral tibial joint. No bone erosion. No soft tissue calcification or chondrocalcinosis XR/XR femur RT 2V IMPRESSION: 1. Right femur. No acute abnormality. 2. Right knee. No acute abnormality. There is moderate degenerative joint disease of the knee.
--- NOTE | ~2023-04-25 | XR_ITS ---
EXAMINATION: XR SHOULDER, RIGHT CLINICAL INFORMATION: Fall. Pain. COMPARISON: None available. TECHNIQUE: Three views of the right shoulder. FINDINGS: No acute abnormality. No fracture. No dislocation. Glenohumeral joint is normal. Normal acromioclavicular joint. Prominent contour of the superior distal right clavicle. No soft tissue calcification. XR/XR shoulder RT min 2V IMPRESSION: Normal right shoulder.
--- NOTE | ~2023-04-25 | CT_ITS ---
EXAMINATION: CT FEMUR WITH CONTRAST, RIGHT CLINICAL INFORMATION: Question of axial extravasation in the lateral thigh COMPARISON: None available. TECHNIQUE: Infections CT scan was performed through the right upper leg after IV contrast only. A total of 85 mL of Omnipaque [address] examination was performed using dose optimization techniques as appropriate, variously including the following: *Automated exposure control *Adjustment of mA and/or kV according to patient size (this includes techniques or standardized protocols for targeted exams where dose is matched to indication/reason for exam; i.e. extremities or head) *Use of iterative reconstruction technique DLP: 1138 mGy-cm FINDINGS: There is a hematoma present in the right lateral thigh measuring 7.3 x 4.1 x 9.2 cm. Surrounding soft tissue stranding is present in the subcutaneous fat. No active extravasation is seen although the exam is not tailored for that diagnosis. To better assess status, precontrast scan should be performed along with arterial phase and then delayed imaging. The visualized femoral artery and femoral vein appear normal. No fractures are seen. CT/CT femur RT w IV con IMPRESSION: Hematoma in the right lateral thigh measuring 7.3 x 4.1 x 9.2 cm. No active extravasation is seen although the exam is not tailored for that diagnosis. To better assess status, precontrast scan should be performed along with arterial phase and then delayed imaging.
--- NOTE | ~2023-04-25 | XR_ITS ---
EXAMINATION: 1. Right femur. 2. Right knee. CLINICAL INFORMATION: Pain. Hematoma. Fall. COMPARISON: None. TECHNIQUE: 1. Right femur. 2 views 2. Right knee. 4 views FINDINGS: 1. Right femur. No fracture. No dislocation of hip. No focal bone lesion. No soft tissue abnormality. 2. Right knee. No fracture. No dislocation. No joint effusion. There is joint narrowing of the medial femoral tibial joint. There are marginal bone spurs of femur and tibia at both the medial and lateral femoral tibial joint. No bone erosion. No soft tissue calcification or chondrocalcinosis XR/XR knee RT 3V IMPRESSION: 1. Right femur. No acute abnormality. 2. Right knee. No acute abnormality. There is moderate degenerative joint disease of the knee.
--- NOTE | 2023-04-25 16:58 | ED_ITS ---
HPI - General Adult General Chief complaint: Fall Stated complaint: Fell injured rt leg Time Seen by Provider: 04/25/23 21:39 Source: patient and family Mode of arrival: ambulatory Limitations: no limitations History of Present Illness HPI narrative: Patient comes to the emergency room complaining of a fall. Patient fell from a ladder approximately 3 ft high, patient states that he landed on the right side of his body, landed on metal. Patient complaining of severe pain in the lateral aspect of the right thigh. Patient complaining of a growing hematoma . Patient states that he did hit his head, unclear if he lost consciousness, fell a bit lightheaded after the incident. Patient denies being on blood thinners. Patient states that he has difficulty bearing weight on the right leg due to pain in the right thigh. Related Data Home Medications Medication Instructions Recorded Confirmed atorvastatin 20 mg tablet 20 mg PO BEDTIME 06/16/20 12/04/21 lisinopril 20 mg tablet 20 mg PO BID 06/16/20 12/04/21 amlodipine 5 mg tablet 1 tab PO DAILY 12/04/21 12/04/21 Previous Rx's Medication Instructions Recorded alcohol swabs (Alcohol Pads) 1 pad topical DIRECTED #200 ea 12/05/21 blood sugar diagnostic (FreeStyle #100 ea 12/05/21 Lite Strips) blood-glucose meter (FreeStyle #1 ea 12/05/21 Lite Meter kit) lancets 28 gauge (FreeStyle #100 ea 12/05/21 Lancets) metformin 1,000 mg tablet 1,000 mg PO BIDWMEAL #60 tabs 12/05/21 sitagliptin phosphate 50 mg tablet 50 mg PO DAILY #30 tabs 12/05/21 (Januvia) ibuprofen 600 mg tablet 600 mg PO Q8H PRN pain #30 tabs 01/30/22 ketorolac 10 mg tablet 10 mg PO TID PRN pain 5 days #15 08/24/22 tabs cephalexin 500 mg capsule 500 mg PO QID #27 caps 01/23/23 doxycycline hyclate 100 mg capsule 100 mg PO BID #13 caps 01/23/23 cyclobenzaprine 10 mg tablet 10 mg PO TID PRN muscle spasm #10 04/25/23 tabs tramadol 50 mg tablet 50 mg PO BID PRN pain #7 tabs 04/25/23 Allergies Allergy/AdvReac Type Severity Reaction Status Date / Time No Known Allergies Allergy Verified 01/23/23 20:15 [No Known Allergies*] Review of Systems 2 Review of Systems: Constitutional : No Weight loss, No Fever, No Chills, No Night Sweats, No Fatigue, No Malaise ENT/Mouth : No Hearing loss, No Ear Pain, No Nasal Congestion, No Sinus Pain, No Hoarseness, No sore throat, No Rhinorrhea, No Swallowing Difficulty Eyes: No Eye Pain, No Swelling, No Redness, No Foreign Body, No Discharge, No Vision Changes Cardiovascular : No Chest Pain, No SOB, No Dyspnea on Exertion, No Orthopnea, No Edema, No Palpitations Respiratory : No Cough, No Sputum, No Wheezing, No Smoke Exposure, No Dyspnea Gastrointestinal : No Nausea, No Vomiting, No Diarrhea, No Constipation, No abdominal Pain, No Hematochezia, No Melena Genitourinary : no irregular bleeding, No Dysuria, No Urinary Frequency, No Hematuria, No Urinary Incontinence, No Urgency, No Flank Pain, No Urinary Flow Changes, No Hesitancy Musculoskeletal : Complaining of right shoulder right leg pain, complaining of mild neck pain Skin : Complaining of groin hematoma in the lateral aspect of the right thumb Neuro : No Weakness, No Numbness, No Paresthesias, No Loss of Consciousness, No Dizziness, complaining of headache Psych : No Anxiety/Panic, No Depression, No SI/HI/AH/VH, No Social Issues, Heme/Lymph: No Bruising, No Bleeding,No Lymphadenopathy Endocrine : No Polyuria, No Polydipsia, No Temperature Intolerance [facility] Past Medical History Medical History Snoring FAUSTINO (obstructive sleep apnea) Obesity (BMI 35.0-39.9 without comorbidity) Panic attacks HTN (hypertension) Social History Social History Household Members: None Housing: Apartment Do you presently have visiting nurse or other home services: No Patient Tobacco Use Status: Never used Tobacco Smoked in Last 30 Days: No Use of substances other than those prescribed or required for medical reasons: No Substance Use Type: Marijuana Advance Directives: No Advance Directives Information Provided: No Physical Exam ED Vital Signs: Vital Signs - 24 hr 04/25/23 17:00 04/25/23 21:04 04/26/23 00:12 Temperature 98.1 F 97.4 F Pulse Rate 75 56 65 Respiratory Rate 20 14 14 Blood Pressure 175/113 H 183/96 H 160/90 H Pulse Oximetry 99 98 Oxygen Delivery Method Room Air Room Air BMI result Body Mass Index 33.9 Const Other: Appearance: Alert. Oriented X3. No acute distress. Eyes: Pupils equal, round and reactive to light. ENT: Pharynx normal. Neck: Normal inspection. Neck supple. No lymph nodes noted. No crepitus, no palpable step-offs, normal range of motion CVS: Normal heart rate and rhythm. Pulses normal. Normal S1 and S2 Respiratory: No respiratory distress. Breath sounds normal. No Wheezing. No rales Abdomen: Soft and nontender. No rigidity. No distention. Skin: Patient has extensive hematoma in the lateral aspect of the right thigh Extremities: No lower extremity edema. No Lacerations. No Rash Neuro: Oriented X 3. No motor deficit. No sensory deficit. Moving all extremities. No slurred speech. CN 2 through 12 grossly intact Psych: calm, cooperative, normal affect Course Course Course Narrative: This is a rapid medical exam: Additional HPI, ROS, PE not included below will be deferred to primary provider. Patient is a 43-year-old male presenting to the ED with complaint of right upper leg pain. States that he fell 3-4 feet off a ladder onto metal prior to arrival. Unable to fully bear weight on R leg, significant swelling and hematoma to right lateral thigh. Also complains of right shoulder pain. Reports dizziness after falling, unsure of head strike. Not anticoagulated. Plan: CT head and neck, x-ray Medications Administered Discontinued Medications Generic Name Dose Route Start Last Admin Trade Name Freq PRN Reason Stop Dose Admin Iohexol 85 ml 04/25/23 22:21 04/25/23 22:22 Iohexol 350 Mg/Ml 100 Ml Infus..Btl IV 04/25/23 22:22 85 ml ONCE ONE Administration Morphine Sulfate 4 mg 04/25/23 21:46 04/25/23 22:00 Morphine Sulfate 4 Mg/Ml Cartridge IVPUSH 04/25/23 21:47 4 mg ONCE ONE Administration Protocol Ondansetron HCl 4 mg 04/25/23 21:46 04/25/23 22:00 Ondansetron Hcl 4 Mg/2 Ml Vial IVPUSH 04/25/23 21:47 4 mg ONCE ONE Administration Medical Decision Making Medical Decision Making MDM Narrative: -my interpretation of x-rays femur: No fracture. Normal alignment. -My interpretation of head CT: No intracranial bleed -my interpretation of labs, patient's H&H is stable, no hemoglobin drop. -I discussed with the patient that the hematoma in the lateral aspect of the right thigh is expanding, we will go ahead and order a CT scan with contrast to rule out active extravasation. -patient was given morphine and Zofran IV. -my interpretation of CT scan, there is a hematoma in the thigh, does not seem to have any active extravasation. -patient provided with crutches Differential Diagnosis Differential Diagnoses: The differential diagnosis associated with the presentation includes (Femur fracture, active extravasation of the right thigh, intracranial bleed, shows fracture) Admission/Observation Consideration of admission/observation: Escalation of care including admission/observation considered (Given patient's complaints and physical exam, on arrival admission was considered) Lab Data 04/26/23 00:15 Labs: Lab Results 04/26/23 Range/Units 00:15 Hgb 11.3 L (14.0-18.0) g/dl Hct 32.8 L (42.0-52.0) % Independent Interpretation I performed an independent interpretation of an: CT Scan Radiology Impression Discussion of test interpretation with radiology: I have reviewed the radiologist's reading. Radiologist Impression: FINDINGS: There is a hematoma present in the right lateral thigh measuring 7.3 x 4.1 x 9.2 cm. Surrounding soft tissue stranding is present in the subcutaneous fat. No active extravasation is seen although the exam is not tailored for that diagnosis. To better assess status, precontrast scan should be performed along with arterial phase and then delayed imaging. The visualized femoral artery and femoral vein appear normal. No fractures are seen. CT/CT femur RT w IV con IMPRESSION: Hematoma in the right lateral thigh measuring 7.3 x 4.1 x 9.2 cm. No active extravasation is seen although the exam is not tailored for that diagnosis. To better assess status, precontrast scan should be performed along with arterial phase and then delayed imaging. Independent Historian Clinical information obtained from an independent historian. History obtained from or confirmed by: Spouse Critical Care Time Critical Care Time Critical Care Time: Yes Total Critical Care Time: 60 Attestation: I have personally provided critical care time. Time includes review of lab data, radiology results, discussion with consultants, and monitoring for potential decompensation. Intervention performed as documented. Discharge Plan Discharge Clinical Impression: Fall, Multiple contusions Patient Disposition: Home, Self-Care Instructions: Contusion in Adults (ED) Additional Instructions: Please follow-up with your primary care physician tomorrow. If you have any worsening or new symptoms, please return to the emergency room or call 911 Prescriptions: New tramadol 50 mg tablet 50 mg PO BID PRN (Reason: pain) Qty: 7 0RF cyclobenzaprine 10 mg tablet 10 mg PO TID PRN (Reason: muscle spasm) Qty: 10 0RF No Action amlodipine 5 mg tablet 1 tab PO DAILY metformin 1,000 mg tablet 1,000 mg PO BIDWMEAL Qty: 60 0RF Januvia 50 mg tablet 50 mg PO DAILY Qty: 30 0RF (DME) FreeStyle Lite Strips Strip See Rx Instructions .Route Qty: 100 0RF Rx Instructions: As directed (DME) blood-glucose meter [FreeStyle Lite Meter] Kit See Rx Instructions .Route Qty: 1 0RF Rx Instructions: As directed (DME) lancets [FreeStyle Lancets] 28 gauge misc See Rx Instructions .Route Qty: 100 0RF Rx Instructions: As directed alcohol swabs [Alcohol Pads] Pads, Medicated 1 pad topical DIRECTED Qty: 200 0RF ibuprofen 600 mg tablet 600 mg PO Q8H PRN (Reason: pain) Qty: 30 0RF doxycycline hyclate 100 mg capsule 100 mg PO BID Qty: 13 0RF cephalexin 500 mg capsule 500 mg PO QID Qty: 27 0RF ketorolac 10 mg tablet 10 mg PO TID PRN (Reason: pain) 5 Days Qty: 15 0RF atorvastatin 20 mg tablet 20 mg PO BEDTIME lisinopril 20 mg tablet 20 mg PO BID Stand Alone Forms: Work/School Release
[2023-04-25 17:00] VITALS: BP 175/113; PULSE 75; RESP 20; TEMP 36.7; O2SAT 99; BMI 33.9
[2023-04-25 21:04] VITALS: BP 183/96; PULSE 56; RESP 14; TEMP 36.3
[2023-04-25] MEDS: Morphine Sulfate 4 MG/ML CARTRIDGE IVPUSH (22:00)
[2023-04-25] MEDS: ondansetron HCL 4 MG/2 ML VIAL IVPUSH (22:00)
[2023-04-25] MEDS: iohexoL 350 MG/ML 100 ML INFUS..BTL 85 ML IV (22:22)
[2023-04-26 00:12] VITALS: BP 160/90; PULSE 65; RESP 14; O2SAT 98
[2023-04-26 00:20] LABS: Hematocrit 32.8 % (42.0-52.0); Hemoglobin 11.3 g/dl (14.0-18.0)
--- NOTE | 2023-04-26 00:33 | PC.NURSE ---
Crutch education provided. Pt demonstrates proper use of crutches.
== END 2023-04-26 00:41 | disposition home or self-care (01) ==
PROVIDERS: Emergency Provider Emergency Medicine
DX: S70.11XA Contusion of right thigh, initial encounter (principal); S80.11XA Contusion of right lower leg, initial encounter; M25.561 Pain in right knee; M25.511 Pain in right shoulder; R51.9 Headache, unspecified; M54.2 Cervicalgia; W11.XXXA Fall on and from ladder, initial encounter; Y93.9 Activity, unspecified; Y92.9 Unspecified place or not applicable; Y99.9 Unspecified external cause status; Z79.899 Other long term (current) drug therapy
CPT/HCPCS: 36415; 70450; 72125; 73030; 73552; 73562; 73701; 85014; 85018; 96374; 96375; 99284; J2270; J2405; Q9967

== ENCOUNTER 2023-07-13 03:11 | Emergency (ER) | payer OTHER, SELFPAY ==
--- NOTE | ~2023-07-13 | CT_ITS ---
EXAMINATION: CT ABDOMEN AND PELVIS WITHOUT CONTRAST CLINICAL INFORMATION: Right flank pain with hematuria COMPARISON: 06/22/2021 TECHNIQUE: Multidetector volumetric imaging was performed from the superior aspect of the liver through the pubic symphysis. Sagittal and coronal reformatted images were obtained on the technologist's workstation. This CT examination was performed using dose optimization techniques as appropriate, variously including the following: *Automated exposure control *Adjustment of mA and/or kV according to patient size (this includes techniques or standardized protocols for targeted exams where dose is matched to indication/reason for exam; i.e. extremities or head) *Use of iterative reconstruction technique DLP: 714 mGy-cm FINDINGS: LUNG BASES: The visualized lung bases are unremarkable. LIVER, GALLBLADDER, AND BILIARY TREE: The liver is normal in size, shape, and attenuation. Small focus of hypoattenuation adjacent to the falciform ligament is suspicious for focal fatty infiltration. No biliary ductal dilatation is present. Gallbladder appears partially contracted and is suboptimally assessed. PANCREAS: Unremarkable. SPLEEN: Unremarkable. ADRENAL GLANDS: Unremarkable. KIDNEYS AND URETERS: No hydronephrosis or obstructing calculus identified bilaterally. Punctate calculus is present in the mid left kidney. Small exophytic left lower pole renal cyst; no follow-up recommended. Minimal nonspecific bilateral perinephric stranding. BLADDER: Partially distended with mild mural prominence. GASTROINTESTINAL TRACT: Suture line is present in the sigmoid colon. There is colonic diverticulosis without diverticulitis. No significant bowel wall thickening or evidence of bowel obstruction. The appendix is unremarkable. No free fluid or free air is seen. ABDOMINAL WALL: Redemonstrated midline anterior abdominal surgical scar. LYMPH NODES: No lymphadenopathy is seen, though assessment is limited in the absence of intravenous contrast. VASCULAR: Mild atherosclerotic calcification. PELVIC VISCERA: Unremarkable. OSSEOUS STRUCTURES: Scattered endplate osteophytes in the spine. CT/CT abdomen pelvis wo IV con IMPRESSION: 1. No hydronephrosis or obstructing calculus identified. Punctate left renal calculus. 2. Mild mural prominence of the urinary bladder. Correlation with urinalysis is recommended to assess for possible cystitis.
[2023-07-13 03:16] VITALS: BP 187/106; PULSE 59; RESP 14; TEMP 36.6; O2SAT 95; BMI 35.9
[2023-07-13 03:32] LABS: Appearance Urine Clear; Color Urine Yellow; Glucose Urine UA Negative (Negative); Leukocyte Esterase Urine Negative (Negative); Nitrite Urine Negative (Negative); PH 7.5 (5.0-9.0); Specific Gravity - Urine 1.015 (1.005-1.025); UMIC TRIGGER UACC YES; Urine Blood Moderate (2+) (Negative); Urine Ketones Negative (Negative); Urine Protein 100 (2+) mg/dL (Neg-Trace)
[2023-07-13 03:38] LABS: Bacteria Urine None Seen (None Seen); Hyaline Casts Urine 0-2 /LPF (0-2); RBC Urine >20 /HPF (0-2); Squamous Epithelial Cell Urine 0-2 /HPF (0-2); WBC Urine 0-5 /HPF (0-5)
--- NOTE | 2023-07-13 03:49 | PC.NURSE ---
pt from home, a&ox4, respirations even and unlabored. reporting waking up in the middle of the night and having the urge to urinate, the urine turned to blood. pt reports right flank pain and lower abdominal pain. pt denies pain and burning with urination.
--- NOTE | 2023-07-13 05:00 | ED_ITS ---
HPI - Male Genitourinary General Chief complaint: Urogenital-Male Stated complaint: Blood in urine Time Seen by Provider: 07/13/23 05:00 Source: patient Mode of arrival: ambulatory Limitations: no limitations History of Present Illness HPI Narrative: Patient With remote history of kidney stone woke up at 03:00 o'clock to go to bathroom noticed bright red blood in the urine followed by right flank pain with nausea. No fever no chills no vomiting no diarrhea history of similar pain in the past Related Data Home Medications Medication Instructions Recorded Confirmed atorvastatin 20 mg tablet 20 mg PO BEDTIME 06/16/20 12/04/21 lisinopril 20 mg tablet 20 mg PO BID 06/16/20 12/04/21 amlodipine 5 mg tablet 1 tab PO DAILY 12/04/21 12/04/21 Previous Rx's Medication Instructions Recorded alcohol swabs (Alcohol Pads) 1 pad topical DIRECTED #200 ea 12/05/21 blood sugar diagnostic (FreeStyle #100 ea 12/05/21 Lite Strips) blood-glucose meter (FreeStyle #1 ea 12/05/21 Lite Meter kit) lancets 28 gauge (FreeStyle #100 ea 12/05/21 Lancets) metformin 1,000 mg tablet 1,000 mg PO BIDWMEAL #60 tabs 12/05/21 sitagliptin phosphate 50 mg tablet 50 mg PO DAILY #30 tabs 12/05/21 (Januvia) ibuprofen 600 mg tablet 600 mg PO Q8H PRN pain #30 tabs 01/30/22 ketorolac 10 mg tablet 10 mg PO TID PRN pain 5 days #15 08/24/22 tabs cephalexin 500 mg capsule 500 mg PO QID #27 caps 01/23/23 doxycycline hyclate 100 mg capsule 100 mg PO BID #13 caps 01/23/23 cyclobenzaprine 10 mg tablet 10 mg PO TID PRN muscle spasm #10 04/25/23 tabs tramadol 50 mg tablet 50 mg PO BID PRN pain #7 tabs 04/25/23 Allergies Allergy/AdvReac Type Severity Reaction Status Date / Time No Known Allergies Allergy Verified 07/13/23 03:16 [No Known Allergies*] Review of Systems 2 Review of Systems: Yes all other systems are reviewed and are negative PMFSH Past Medical History Medical History Snoring FAUSTINO (obstructive sleep apnea) Obesity (BMI 35.0-39.9 without comorbidity) Panic attacks HTN (hypertension) Social History Social History Household Members: None Housing: Apartment Do you presently have visiting nurse or other home services: No Patient Tobacco Use Status: Never used Tobacco Smoked in Last 30 Days: No Use of substances other than those prescribed or required for medical reasons: Yes Substance Use Type: Marijuana Advance Directives: No Advance Directives Information Provided: Yes Physical Exam 2 Vital Signs: Vital Signs: Last Vital Signs Temp 98.9 F 07/13/23 05:54 Pulse 67 07/13/23 05:54 Resp 15 07/13/23 05:54 BP 193/103 H 07/13/23 06:00 Pulse Ox 98 07/13/23 05:54 O2 Del Method Room Air 07/13/23 05:54 BMI result Body Mass Index 35.9 Appearance: Alert. Oriented X3. In moderate distress. Eyes: No pallor or icterus ENT: Pharynx normal. Oral Mucosa moist Neck: Normal inspection. Neck supple. CVS: Normal heart rate and rhythm. Pulses normal. Respiratory: No respiratory distress. Equal air entry bilateral, no wheezing/rales/rhonchi Abdomen: Soft and nontender. Bowel sounds are present, no mass palpable, right CVA tenderness Skin: Skin warm and dry. Normal skin color. Normal skin turgor. Neuro: Oriented X 3. Medications Administered Discontinued Medications Generic Name Dose Route Start Last Admin Trade Name Lukeq PRN Reason Stop Dose Admin Amlodipine Besylate 5 mg 07/13/23 06:02 07/13/23 06:12 Amlodipine Besylate 5 Mg Tablet PO 07/13/23 06:03 5 mg ONCE ONE Administration Protocol Sodium Chloride 1,000 mls @ 999 mls/hr 07/13/23 05:14 07/13/23 05:56 Ns IV 07/13/23 06:14 999 mls/hr .Q1H1M ONE Administration Ketorolac Tromethamine 30 mg 07/13/23 05:14 07/13/23 05:56 Ketorolac Tromethamine 30 Mg/Ml Vial IVPUSH 07/13/23 05:15 30 mg ONCE ONE Administration Morphine Sulfate 4 mg 07/13/23 05:14 07/13/23 05:56 Morphine Sulfate 4 Mg/Ml Cartridge IVPUSH 07/13/23 05:15 4 mg ONCE ONE Administration Protocol Ondansetron HCl 4 mg 07/13/23 05:14 07/13/23 05:56 Ondansetron Hcl 4 Mg/2 Ml Vial IVPUSH 07/13/23 05:15 4 mg ONCE ONE Administration Medical Decision Making Medical Decision Making [facility] Narrative: Patient with incidental gross hematuria now urine is clear CT scan of the abdomen negative acute possible patient had kidney stone which already passed/abdominal blood vessel in the bladder wall. Patient advised to follow with urologist Differential Diagnosis Differential Diagnoses: The differential diagnosis associated with the presentation includes Kidney stone/bladder growth Lab Data [facility] Lab Attestation statement: I reviewed the patient's lab results. 07/13/23 05:42 07/13/23 05:42 Labs: Lab Results 07/13/23 07/13/23 Range/Units 03:24 05:42 WBC 5.5 (4.8-10.8) X10*3/uL RBC 4.37 L (4.60-5.80) X10*6/uL Hgb 12.8 L (14.0-18.0) g/dl Hct 37.9 L (42.0-52.0) % MCV 86.7 (80.0-98.0) fL MCH 29.3 (27.0-33.0) pg MCHC 33.8 (31.0-36.0) g/dl RDW 11.9 (11.0-16.0) % Plt Count 238 (160-400) X10*3/uL MPV 9.4 (9.4-12.4) fL Immature Gran % (Auto) 0.2 (0.0-0.4) % Neut % (Auto) 54.3 (45-73) % Lymph % (Auto) 30.8 (20-40) % [place] % (Auto) 9.1 (2-11) % Eos % (Auto) 5.1 H (0-4) % Baso % (Auto) 0.5 (0-2) % Lymph # (Auto) 1.7 (1.2-4.9) X10*3/uL [place] # (Auto) 0.5 (0.1-1.2) X10*3/uL Eos # (Auto) 0.3 (0.0-0.4) X10*3/uL Baso # (Auto) 0.0 (0.0-0.2) X10*3/uL Abs Immat Gran (auto) 0.01 (0.00-0.03) X10*3/uL Absolute Neuts (auto) 3.0 (2.0-8.3) x10*3/uL Absolute Nucleated RBC 0.000 (0.0-0.012) X10*3/uL Nucleated RBC % (auto) 0.0 (0.0-0.2) /100WBC Sodium 141 (135-145) mmol/L Potassium 4.3 (3.3-5.1) mmol/L Chloride 108 (96-108) mmol/L Carbon Dioxide 27 (22-29) mmol/L Anion Gap 10 L (12-20) BUN 21 H (9-16) mg/dL Creatinine 1.02 (0.5-1.4) mg/dL Estim Creat Clear Calc 100.5 Estimated GFR > 60 Random Glucose 111 (60-115) mg/dL Calcium 9.4 (8.4-10.2) mg/dL Total Bilirubin 0.2 (0.0-1.0) mg/dL AST 24 (5-37) U/L ALT 20 (0-40) U/L Alkaline Phosphatase 68 (39-117) U/L Total Protein 7.5 (6.5-8.0) g/dL Albumin 4.0 (3.5-5.0) g/dL Urine Color Yellow Urine Appearance Clear Urine pH 7.5 (5.0-9.0) Ur Specific [place] 1.015 (1.005-1.025) Urine Protein 100 (2+) H (Neg-Trace) mg/dL Urine Glucose (UA) Negative (Negative) mg/dL Urine Ketones Negative (Negative) mg/dL Urine Blood Moderate (2+) H (Negative) Urine Nitrite Negative (Negative) Ur Leukocyte Esterase Negative (Negative) Urine RBC >20 H (0-2) /HPF Urine WBC 0-5 (0-5) /HPF Ur Squamous Epith Cells 0-2 (0-2) /HPF Urine Bacteria None Seen (None Seen) Hyaline Casts 0-2 (0-2) /LPF Independent Interpretation I performed an independent interpretation of an: CT Scan Radiology Impression Discussion of test interpretation with radiology: I have reviewed the radiologist's reading. Discharge Plan Discharge Clinical Impression: Hematuria Patient Disposition: Home, Self-Care Instructions: Hematuria (ED) Additional Instructions: Drink plenty of fluids Follow with urologist for further workup including cystoscopy It is possible that he had a small stone which already passed Prescriptions: No Action amlodipine 5 mg tablet 1 tab PO DAILY metformin 1,000 mg tablet 1,000 mg PO BIDWMEAL Qty: 60 0RF Januvia 50 mg tablet 50 mg PO DAILY Qty: 30 0RF (DME) FreeStyle Lite Strips Strip See Rx Instructions .Route Qty: 100 0RF Rx Instructions: As directed (DME) blood-glucose meter [FreeStyle Lite Meter] Kit See Rx Instructions .Route Qty: 1 0RF Rx Instructions: As directed (DME) lancets [FreeStyle Lancets] 28 gauge misc See Rx Instructions .Route Qty: 100 0RF Rx Instructions: As directed alcohol swabs [Alcohol Pads] Pads, Medicated 1 pad topical DIRECTED Qty: 200 0RF ibuprofen 600 mg tablet 600 mg PO Q8H PRN (Reason: pain) Qty: 30 0RF doxycycline hyclate 100 mg capsule 100 mg PO BID Qty: 13 0RF cephalexin 500 mg capsule 500 mg PO QID Qty: 27 0RF ketorolac 10 mg tablet 10 mg PO TID PRN (Reason: pain) 5 Days Qty: 15 0RF tramadol 50 mg tablet 50 mg PO BID PRN (Reason: pain) Qty: 7 0RF cyclobenzaprine 10 mg tablet 10 mg PO TID PRN (Reason: muscle spasm) Qty: 10 0RF atorvastatin 20 mg tablet 20 mg PO BEDTIME lisinopril 20 mg tablet 20 mg PO BID Referrals: Darrick Self MD [Physician] - 2 weeks
--- NOTE | 2023-07-13 05:48 | PC.NURSE ---
20G placed in left AC, labs obtained.
[2023-07-13 05:49] LABS: MANUAL DIFF FLAG NO
[2023-07-13 05:50] LABS: Basophils Percent Auto 0.5 % (0-2); Eosinophils Absolute Auto 0.3 X10*3/uL (0.0-0.4); Eosinophils Percent Auto 5.1 % (0-4); Hematocrit 37.9 % (42.0-52.0); Hemoglobin 12.8 g/dl (14.0-18.0); Imm Gran Abs Auto 0.01 X10*3/uL (0.00-0.03); Imm Gran Pct Auto 0.2 % (0.0-0.4); Lymphocytes Absolute Auto 1.7 X10*3/uL (1.2-4.9); Lymphocytes Percent Auto 30.8 % (20-40); Mean Corpuscular HGB Conc 33.8 g/dl (31.0-36.0); Mean Corpuscular Hemoglobin 29.3 pg (27.0-33.0); Mean Corpuscular Volume 86.7 fL (80.0-98.0); Mean Platelet Volume 9.4 fL (9.4-12.4); Monocytes Absolute Auto 0.5 X10*3/uL (0.1-1.2); Monocytes Percent Auto 9.1 % (2-11); Neutrophils Percent Auto 54.3 % (45-73); Platelet Count 238 X10*3/uL (160-400); Red Blood Count 4.37 X10*6/uL (4.60-5.80); Red Cell Distribution Width 11.9 % (11.0-16.0); White Blood Count 5.5 X10*3/uL (4.8-10.8)
[2023-07-13 05:54] VITALS: BP 191/117; PULSE 67; RESP 15; TEMP 37.2; O2SAT 98
[2023-07-13] MEDS: 0.9 % Sodium Chloride 1,000 ML 999 ML IV (05:56)
[2023-07-13] MEDS: Ketorolac Tromethamine 30 MG/ML VIAL IVPUSH (05:56)
[2023-07-13] MEDS: ondansetron HCL 4 MG/2 ML VIAL IVPUSH (05:56)
[2023-07-13] MEDS: Morphine Sulfate 4 MG/ML CARTRIDGE IVPUSH (05:56)
[2023-07-13 06:00] VITALS: BP 193/103
[2023-07-13 06:04] LABS: Alanine Aminotransferase 20 U/L (0-40); Alkaline Phosphatase 68 U/L (39-117); Anion Gap 10 (12-20); Aspartate Amino Transferase 24 U/L (5-37); Bilirubin Total 0.2 mg/dL (0.0-1.0); Blood Urea Nitrogen 21 mg/dL (9-16); Calcium 9.4 mg/dL (8.4-10.2); Carbon Dioxide 27 mmol/L (22-29); Chloride 108 mmol/L (96-108); Creatinine Clr Calc Pharmacy 100.5; Estimated Glomerular Filt Rate > 60; Glucose Random 111 mg/dL (60-115); Potassium 4.3 mmol/L (3.3-5.1); Sodium 141 mmol/L (135-145); Total Protein 7.5 g/dL (6.5-8.0)
[2023-07-13] MEDS: amLODIPine Besylate 5 MG TABLET PO (06:12)
--- NOTE | 2023-07-13 06:14 | PC.NURSE ---
pt medicated per mar, pt tolerated well with water.
[2023-07-13 07:09] VITALS: BP 203/108; PULSE 59; RESP 18; TEMP 36.4; O2SAT 97
[2023-07-13] MEDS: lisinopriL 20 MG TABLET PO (07:21)
[2023-07-13 08:13] VITALS: BP 184/102; PULSE 60; RESP 17; O2SAT 97
== END 2023-07-13 08:40 | disposition home or self-care (01) ==
PROVIDERS: Emergency Provider Internal Medicine
DX: R31.9 Hematuria, unspecified (principal); R10.9 Unspecified abdominal pain
CPT/HCPCS: 36415; 74176; 80053; 81001; 85025; 96361; 96374; 96375; 99284; 99285; J1885; J2270; J2405